=== PATIENT | male | born 1940 | race Caucasian/White ===

== ENCOUNTER 2016-07-07 19:41 | Inpatient (IN) | payer BC, MEDICARE ==
--- NOTE | ~2016-07-07 | DS ---
Discharge Summary [address] [place]. [address] NAME: SHRUTHI JAMIL : 40 STATUS : DIS IN PAT#: [id number] AGE: 76 ADM/REG DATE : 07/07/16 MR#: [id number] REPORT SERV DATE: 08/05/16 DICTATED BY: MACIEJ BOLIVAR DATE: 08/04/16 REPORT STATUS : Draft TRANSCRIBED BY: MODL DATE: 08/04/16 ADMISSION DATE: 07/07/2016 DISCHARGE DATE: 08/04/2016 The patient was admitted to the Hospitalist Service. CONSULTANTS: Dr. Luis Miguel Pittman, Orthopedics; Dr. Idania Mccarty, Gastroenterology; Dr. Dinora Aguilera, Pulmonology; and Hanna Santos, nurse practitioner for Nephrology. DISCHARGE DIAGNOSES: 1. Status post lumbar spine microdiskectomy. 2. Hypoxic respiratory failure postoperatively, resolved. 3. Status post mechanical aortic valve replacement on chronic oral anticoagulation with Coumadin. 4. Chronic atrial fibrillation. 5. Chronic kidney disease stage III. 6. Diabetes mellitus type 2. 7. Obstructive sleep apnea. 8. Anemia of chronic disease with postop acute blood loss anemia. 9. Urinary retention. PROCEDURES: 07/11/2016, right-sided L2-3 and L4-5 laminal foraminotomy with microdiskectomy per Dr. Luis Miguel Pittman. HISTORY OF PRESENT ILLNESS: For complete history, please refer to admission H and P by Dr. Nancy Gardner at [facility] on 07/07/2016. Briefly Mr. Jamil is a 76-year-old gentleman, who presented to the emergency room with complaints of low back pain, leg weakness, and difficulty ambulating. In the emergency room at the [facility], an MRI showed a ruptured disc at lumbar L2-3 and protruding discs at L3-4 and L4-5 as well as compression fracture at T12. In addition, he had an acute kidney injury with a creatinine of 2.73 and a supratherapeutic INR of 6.4. He was admitted to the Hospitalist Service and transferred to the [facility] for further evaluation and treatment. HOSPITAL COURSE: Please see interim discharge diagnoses by Bharat Fairchild, nurse practitioner, and Dr. Ira Pulido. This discharge summary will cover dates 08/02/2016 through 08/04/2016. I saw Mr. Jamil on 08/02/2016 this week. He admitted to being depressed about his current situation with lengthy hospitalization. He was complaining of some cough with inability to expectorate his sputum. He was also complaining that our suction equipment in the hospital was inadequate, therefore he had his bring in their own portable suction from home. His vital signs were stable. He was alert and oriented, in no acute distress. He did have somewhat of a productive cough intermittently. His lungs had a very few scattered rhonchi which cleared with cough. Cardiovascular, he had an irregularly irregular rhythm, rate in the 80s. Atrial fibrillation per bedside monitor. He was currently receiving a heparin drip as his INR was subtherapeutic and on this date was 2.1. Plan was Discharge Summary [address] [address] NAME: SHRUTHI JAMIL : 40 STATUS : DIS IN PAT#: [id number] AGE: 76 ADM/REG DATE : 07/07/16 MR#: [id number] REPORT SERV DATE: 08/05/16 DICTATED BY: MACIEJ BOLIVAR DATE: 08/04/16 REPORT STATUS : Draft TRANSCRIBED BY: JIMMY DATE: 08/04/16 for Mr. Jamil to transition to [facility] rehab once his INR was therapeutic. The goal was 2.5 to 3.5 as he has a mechanical aortic valve. He did have a Mclaughlin catheter and bladder training was in progress. His creatinine was at baseline and Renal signed off on this date. On 08/03/2016, he was in no acute distress. He felt better. He was asking about getting another Procrit dose; however, he had recently had a Procrit dose on 07/29/2016. His cough had improved. He had less sputum production and no new complaints. His oxygen was 100% on 2-1/2 L, therefore we decreased him to 2 L and then to 1 liter. He is using his CPAP nightly with 2 L of oxygen. His blood sugars have been under control with the current insulin regimen. After discussion with the [facility] Liaison on 08/03/2016, she was resubmitting Mr. Jamil' information to [facility] for approval since significant amount of time had elapsed since his initial approval for inpatient rehab. He continued on a heparin drip again on this date. On 08/04/2016, Mr. Jamil remained in stable condition. He denied any chest pain or shortness of breath, still had an occasional cough with intermittent clear sputum production. His oxygen saturation was 99 to 100% on 2 L. His lungs were clear. He did have some occasional scattered rhonchi that cleared with cough. His blood sugar this morning was 149. His last laboratory studies were on 08/03/2016 and are as follows. Sodium 138, potassium 4.0, chloride 99, BUN 45, creatinine 1.79, glucose 112, calcium 8.3, magnesium 1.9, and phosphorus 3.4. CBC on 08/03/2016 revealed a white count of 5.1, hemoglobin 9, hematocrit 27.5, and platelets 224,000. On 08/04/2016, his INR was 2.9, therefore his heparin drip was discontinued. He was given a dose of Coumadin 12 mg today prior to his discharge to [facility]. Mr. Jamil was anxious regarding his transfer to [facility]. Mainly his concern was they were not going to be able to manage his INR while he was over there. I reassured him that this is manageable and they will follow his INR on a daily basis until his INR stabilizes. He will continue to receive daily adjustments in his Coumadin dose as well. Therefore, on the afternoon of 08/04/2016, he was discharged in stable condition to [facility] for rehab. DISCHARGE INSTRUCTIONS: Include 1. Diet 1800 calorie ADA diet is recommended. 2. Activity as tolerated with PT and OT evaluating and treating. DISCHARGE MEDICATIONS: Which are as follows: 1. Calcitriol 0.25 mcg p.o. with supper daily. 2. Carvedilol 3.125 mg p.o. b.i.d. 3. Colace 100 mg p.o. b.i.d. 4. Doxycycline 100 mg p.o. b.i.d., discontinue after last dose on 08/06/2016. 5. Vitamin D 50,000 units p.o. weekly on . 6. Lasix 80 mg p.o. b.i.d. 7. Guaifenesin 600 mg p.o. b.i.d. p.r.n. 8. Sliding scale insulin level 1 q.a.c. 9. NovoLog insulin 5 units subcu t.i.d. with meals. 10.Synthroid 175 mcg p.o. daily. 11.Amitiza 24 mcg p.o. with breakfast and supper. 12.Coumadin sliding scale. Pharmacy to dose after daily INR. 13.Hydralazine 25 mg p.o. t.i.d., hold for systolic blood pressure less than 110. 14.Albuterol unit dose q.4 hours p.r.n. 15.Levemir 25 units subcu daily at bedtime. Discharge Summary [address] [address] NAME: SHRUTHI JAMIL : 40 STATUS : DIS IN PAT#: [id number] AGE: 76 ADM/REG DATE : 07/07/16 MR#: [id number] REPORT SERV DATE: 08/05/16 DICTATED BY: MACIEJ BOLIVAR DATE: 08/04/16 REPORT STATUS : Draft TRANSCRIBED BY: JMIMY DATE: 08/04/16 16.Tylenol with Codeine 300/30 mg one p.o. q.4 hours p.r.n. pain. 17.Tylenol 650 p.o. q.4 hours p.r.n. 18.Tylenol suppository 650 mg q.4 hours p.r.n. 19.Mylanta 30 mL p.o. p.r.n. 20.Dulcolax suppository 10 mg p.r. p.r.n. 21.Dulcolax tab 15 mg p.o. p.r.n. 22.Benadryl 12.5 mg p.o. q.6 hours p.r.n. 23.Glucagon 1 mg IM per hypoglycemia protocol. 24.Glucose tabs p.r.n. per hypoglycemia protocol. 25.Milk of magnesia 30 mL p.r.n. b.i.d. 26.Zofran 4 mg p.o. or sublingual q.4 hours p.r.n. nausea. 27.Oxycodone 5/325 one p.o. q. 4h. p.r.n. 28.Fleet Enema p.r.n. 29.Restoril 15 mg p.o. at bedtime p.r.n. 30.Folic acid 1 mg p.o. daily. 31.Aspirin 81 mg p.o. daily. 32.Cerefolin tablet 1 p.o. daily. 33.Crestor 20 mg p.o. daily at bedtime. Other discharge instructions include Mr. Jamil is asked to follow up with his PCP and storage specialist after discharge from [facility]. Again he is to receive daily INR for his Coumadin dosing with INR goal 2.5 to 3.5. Again he is discharged to [facility] in stable condition on 08/04/2016. TOSIN/JIMMY Zeny Bolivar TIRE BALANCER-BC / [id number] CC: Hermelinda Jean Baptiste M.D. Luis Miguel Pittman, DO Mago Mackenzie M.D. [facility]
--- NOTE | ~2016-07-07 | CN ---
Consultation Report [facility] [address] [place]. [address] NAME: SHRUTHI JAMIL : 40 STATUS : ADM IN [facility]#: [id number] AGE: 76 ADM/REG DATE : 07/07/16 MR#: [id number] REPORT SERV DATE: 07/12/16 DICTATED BY: DINORA AGUILERA DATE: 07/12/16 REPORT STATUS : Draft TRANSCRIBED BY: MODL DATE: 07/12/16 CRITICAL CARE CONSULT DATE OF CONSULTATION: REASON FOR CONSULTATION: Postop respiratory failure. CHIEF COMPLAINT: Unable to obtain as the patient is currently intubated and no family is at the bedside. HISTORY OF PRESENT ILLNESS: Mr. Jamil is a 76-year-old male who was admitted on 07/07/2016, five days ago with a ruptured disk and left extremity weakness along with urinary retention. He had a supratherapeutic INR at that time and is noted to have a mechanical valve history. The patient was also noted to be in acute kidney injury. He was admitted to [facility] and transferred to our institution. The patient underwent a right lumbar radiculopathy, right lower extremity weakness diagnosis, and the procedure was a right-sided L2 through L5 laminectomy, foraminotomy, and microdiskectomy. This was done yesterday. After surgery, the patient was kept intubated. He is currently off anticoagulation, he has been reversed, and the thought is to keep him intubated for around 24 hours. PAST MEDICAL HISTORY: Acute kidney injury, chronic kidney disease, diabetes, mechanical aortic valve, and chronic venous stasis. MEDICATIONS: Current medications include Amitiza, Ancef, verapamil, Colace, Coreg, folic acid, Lipitor, level 2 sliding scale, calcitriol, and Synthroid. ALLERGIES: NEOMYCIN, BACITRACIN, POLYMYXIN B. SOCIAL HISTORY: According to record, no alcohol or tobacco use. 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 FAMILY HISTORY: Consistent with diabetes. REVIEW OF SYSTEMS: Unable to obtain due to the patient's current medical status. PHYSICAL EXAMINATION: VITAL SIGNS: Afebrile; heart rate in the 50s and 70s, currently on mechanical ventilation; oxygen saturation 100%; and blood pressure currently in the 120s. GENERAL: The patient is sedated, reactive pupils. HEENT: No JVD. NECK: Supple. PULMONARY: Lungs are clear to auscultation bilaterally. No wheezing. CARDIAC: Mechanical heart sound, regular rate. Consultation Report [address] [address] NAME: SHRUTHI JAMIL : 40 STATUS : ADM IN [facility]#: [id number] AGE: 76 ADM/REG DATE : 07/07/16 MR#: [id number] REPORT SERV DATE: 07/12/16 DICTATED BY: DINORA AGUILERA DATE: 07/12/16 REPORT STATUS : Draft TRANSCRIBED BY: MODValery DATE: 07/12/16 ABDOMEN: Soft, nontender, and nondistended. EXTREMITIES: Chronic venous stasis, peripheral pulses noted. LABORATORY EXAMINATION: No leukocytosis, hemoglobin stable, platelet count 88, findings of chronic kidney disease. Upon review of the patient's platelet count, the patient's last platelet count was in 2000 and it was 255, and therefore, no baseline. Imaging: Postop chest x-ray shows ET tube is in good position, possible left lower lobe atelectasis, but otherwise, no acute findings, findings of previous open heart surgery. ASSESSMENT AND PLAN: Mr. Jamil is a 76-year-old male with a past medical history noted above who is currently postop respiratory failure. 1. Postoperative respiratory failure: At this moment in time, we will await Surgery clearance to extubate the patient. Therefore, the patient is potentially a quick wean within 24 hours. 2. Mechanical aortic valve: The patient is currently not on any anticoagulation, we will wait the directive of Orthopedic Surgery prior to initiating anticoagulation. 3. At this moment in time, we will keep the patient n.p.o. Thank you very much for this consultation and allowing us to participate in your patient's care, please call us with any further questions or concerns. HFQ/MODL Dinora Aguilera MD / [id number] CC: MD Domenico Rick M.D.
--- NOTE | ~2016-07-07 | CN ---
Consultation Report [facility] [address] [place]. [address] NAME: BUNNY JAMIL : 40 STATUS : ADM IN [facility]#: [id number] AGE: 76 ADM/REG DATE : 07/07/16 MR#: [id number] REPORT SERV DATE: 07/09/16 DICTATED BY: CHRISTIE ARRIAGA DATE: 07/09/16 REPORT STATUS : Draft TRANSCRIBED BY: MODL DATE: 07/09/16 CONSULTATION DATE OF CONSULTATION: HISTORY OF PRESENT ILLNESS: Bunny Jamil is a pleasant 76-year-old gentleman, who has a history of spinal stenosis, who was admitted here on 07/07/2016 with weakness on the left leg and was found to have a spinal stenosis of L2-L3 and L4-L5. He was supposed to have a spinal surgery done on Monday and has a history of INR being 6.2 and having heme-positive stools, hence the consult. According to the patient, the patient has been having clots from the nose and has multiple areas of ecchymosis on the legs and hands and he is pretty aware that his INR 6.3 that is probably the reason why he is having blood in his stools. He wants to proceed to surgery and does not want a colonoscopy at this time. He had a colonoscopy done about four years ago by Dr. Colón and did not have any polyps. PAST MEDICAL HISTORY: Significant for kidney injury, volume depletion, type 2 diabetes mellitus, aortic valve replacement, on permanent anticoagulants with Coumadin, gallbladder disturbance. He has some gait abnormalities for which he uses a walker, has chronic venous stasis, and has spinal canal stenosis. ALLERGIES: NEOSPORIN AND VERSED FAMILY HISTORY: Noncontributory at this time. REVIEW OF SYSTEMS: Shows that the patient has weakness in the left leg and has pain in his back. Has no shortness of breath. Has multiple areas of ecchymosis. Otherwise, he seems to be normal. PHYSICAL EXAMINATION: VITAL SIGNS: His temperature is normal. NECK: Supple. Trachea is central. Carotids are well felt on both sides. CARDIOVASCULAR SYSTEM: S1 and S2 are heard. There is no S3. ABDOMEN: Soft. Bowel sounds are heard. CHEST: Scars over his chest and abdomen. CENTRAL NERVOUS SYSTEM: Higher function, cranial nerves, and reflexes are normal except for the weakness on the left. CURRENT MEDICATIONS: Lipitor 40 mg per day, Rocaltrol 0.25 mcg p.o. weekly, Coreg (carvedilol) 3.125 mg b.i.d., NovoLog injection, Synthroid, Amitiza, Levemir, and heparin drip. LABORATORY DATA: His lab show a white cell count of 7.6, hemoglobin is 10.3, hematocrit Consultation Report [address] [address] NAME: BUNNY JAMIL : 40 STATUS : ADM IN PAT#: [id number] AGE: 76 ADM/REG DATE : 07/07/16 MR#: [id number] REPORT SERV DATE: 07/09/16 DICTATED BY: CHRISTIE ARRIAGA DATE: 07/09/16 REPORT STATUS : Draft TRANSCRIBED BY: JIMMY DATE: 07/09/16 30.7, platelet count is 77. INR was 1.8. His sodium is 132, potassium is 4.3, chloride is 99, BUN is 64, creatinine is 2.3, glucose is 218, and calcium is 7.7. IMPRESSION: 1. Diabetes mellitus. 2. Osteoarthritis of spine. 3. Ruptured disk with leg weakness. 4. Urinary retention. 5. Aortic valve replacement, on Coumadin, with an INR of 6.4. 6. History of congestive heart failure. 7. Acute kidney injury. 8. He has consistent thrombocytopenia. 9. Anemia with heme-positive stools. PLAN: At this point, I would continue the heparin drip, but would suggest the heparin to keep the INR about 2.5, would proceed with surgery, but according to the patient, he does not want any colonoscopy at this time, so we will follow his hemoglobin. Thank you for the consult. GLENN/JIMMY Christie Arriaga M.D. / [id number] CC: Hermelinda Jeffrey M.D.
--- NOTE | ~2016-07-07 | IDS ---
Interim Discharge Summary [facility] [address] [place]. [address] NAME: SHRUTHI BROOKS : 40 STATUS : ADM IN [facility]#: [id number] AGE: 76 ADM/REG DATE : 07/07/16 MR#: [id number] REPORT SERV DATE: 07/12/16 DICTATED BY: LATRELL THOMPSON DATE: 07/11/16 REPORT STATUS : Draft TRANSCRIBED BY: MODL DATE: 07/11/16 ADMISSION DATE: 07/07/2016 DISCHARGE DATE: REASON FOR ADMISSION: This is a 76-year-old male who had come into the emergency department at [facility] for back pain and left leg weakness. MRI of lumbar spine would show findings suggestive of a late subacute insufficiency fracture T12, disk extrusion at L2-L3 with canal stenosis. An effective AP canal diameter of 4 mm disk protrusions also at L3-L4 and L4-L5 and markedly distended urinary bladder. Due to patient's symptoms imaging findings, he was admitted for lumbar spine stenosis with lower extremity weakness and urinary retention. INTERIM DISCHARGE DIAGNOSES: 1. Ruptured disk with leg weakness and urinary retention. 2. History of mechanical aortic valve replacement. 3. Acute blood loss anemia with Hemoccult-positive stool. 4. Acute kidney injury. 5. Obstructive sleep apnea. 6. Diabetes type 2. 7. Morbid obesity. 8. Relative bradycardia secondary to beta-vesna. HOSPITAL COURSE: 1. Ruptured disk with leg weakness and urinary retention. The patient agreed to transfer to [facility] for surgery to be performed by Dr. Pittman who agreed to consult on the patient. However, the patient has a history of aortic valve replacement on Coumadin, had come in with INR of 6.4, and so we had to transition the patient to get his INR down to acceptable levels and transition him over to heparin drip, as well as the patient had acute kidney injury and so we have been rehydrating the patient preparing him for surgery, and the patient is scheduled to be having surgery today by Dr. Pittman. 2. History of mechanical aortic valve. As previously mentioned the patient had INR of 6.4 on admission, is trended down now after vitamin K was given to now and INR of 1.6, and he is on an IV heparin drip which has been stopped here just recently as the patient is having surgery shortly. 3. Acute blood loss anemia. The patient does have a history of chronic anemia and receives Procrit shots; however, the patient's hemoglobin had dropped from 13.0 on admission down to 11.6, then 10.3, and now 9.2. Stools were hemocculted and were positive so we consulted GI, Dr. Mccarty saw the patient. The patient refused to do colonoscopy or GI scope and his hemoglobin is relatively stable having been between 10 and 9. Apparently, he receives Procrit shots every 3 weeks. 4. Acute kidney injury. The patient was hypovolemic dehydrated on admission with a creatinine of 2.73. We have been giving him gentle IV fluid hydration and he is trended down now to 1.60 today. 5. Obstructive sleep apnea. The patient uses CPAP at bedtime, has at bedside. 6. Diabetes type 2. The patient has had some hypoglycemia here at the hospital, was Interim Discharge Summary [address] [address] NAME: SHRUTHI BROOKS : 40 STATUS : ADM IN [facility]#: [id number] AGE: 76 ADM/REG DATE : 07/07/16 MR#: [id number] REPORT SERV DATE: 07/12/16 DICTATED BY: LATRELL THOMPSON DATE: 07/11/16 REPORT STATUS : Draft TRANSCRIBED BY: JIMMY DATE: 07/11/16 n.p.o. after midnight. I did reduce his Levemir dose by 50% but he was still 51 this morning, so we will hold Levemir until the patient is consistently eating. 7. Relative bradycardia secondary to beta vesna. The patient's heart rate has been in the 50s over last 24 hours, so we have set parameters to hold Coreg if heart rate less than 60. CURRENT MEDICATIONS: 1. Atorvastatin 40 mg p.o. at bedtime. 2. Calcitriol 0.25 mcg p.o. daily. 3. Carvedilol 3.125 mg p.o. b.i.d. 4. Ergocalciferol 50,000 units p.o. every . 5. Folic acid 1 mg p.o. daily. 6. Sliding scale NovoLog. 7. Synthroid 175 mcg p.o. daily. 8. Lubiprostone 24 mcg p.o. daily. 9. Verapamil 360 mg p.o. daily. CURRENT PLAN: The patient going for surgery today with Dr. Pittman. Course postoperatively was put patient back on heparin drip and transition him back to Coumadin. The patient's care to be assumed this week by Ira Pulido. JESSICA/NICHOLEL Latrell Thompson APN / [id number] CC: MD Domenico Rick M.D. Jason C. Eck, DO Jay Philippose, M.D.
--- NOTE | ~2016-07-07 | CN ---
Consultation Report [facility] [address] [place]. [address] NAME: SHRUTHI BROOKS : 40 STATUS : ADM [facility] [id number] AGE: 76 ADM/REG DATE : 07/07/16 MR#: [id number] REPORT SERV DATE: 07/09/16 DICTATED BY: LUIS MIGUEL PITTMAN DATE: 07/09/16 REPORT STATUS : Draft TRANSCRIBED BY: MODL DATE: 07/09/16 INPATIENT CONSULTATION DATE OF CONSULTATION: 07/08/2016 CHIEF COMPLAINT: Right leg weakness. HISTORY OF PRESENT ILLNESS: The patient is a 76-year-old who was admitted to the medical service on 07/07/2016 with progressive right leg weakness. He states that for about 4 weeks he had been having increasing difficulty. His primary doctor had initially recommended an MRI and he had declined. Over that 4-week period, he started having progressive difficulty with ambulating and pain and weakness in the right leg and eventually went to the emergency department at [facility], had an MRI scan that showed rather severe stenosis at L2-L3 as well as on the right-side at L4-L5. He had multiple medical issues and was transferred to the [facility], admitted to the Hospitalist Service, and I was consulted. He also had distended bladder and a Mclaughlin was placed in the emergency department. On questioning, the patient states that he was able to urinate that he never felt that he had inability to void. He does understand the concept of cauda equina syndrome and he states that he did not feel that he had any urinary retention. PAST MEDICAL HISTORY: Include acute kidney injury, volume depletion, type 2 diabetes, aortic valve replacement, gait disturbance using a walker, chronic venous stasis. ALLERGIES: NEOSPORIN AND VERSED. FAMILY HISTORY: Noncontributory. REVIEW OF SYSTEMS: He denies any chest pain or shortness of breath. He denies urinary retention although he did have a distended bladder and a Mclaughlin catheter was placed. PHYSICAL EXAMINATION: The patient does have rather significant decreased strength in the right lower extremity diffusely. He has 3/5 for the hip flexors, quadriceps, and hamstrings. 2+/5 for the tibialis anterior and peroneals and 4/5 for the gastroc soleus on the right side. Left lower extremity remains intact. No focal deficits. Sensation is somewhat diminished to light touch bilaterally but that is chronic for him secondary to his diabetes. LAB STUDIES: The patient is coagulopathic. His INR is 6.4. He states that he his normal range is approximately 3.0. His BUN and creatinine are 76 and 2.73. He states that it is usually less than 2. IMAGING: I did review the MRI scan. He does have multilevel degenerative disk disease and stenosis, most severely at the L2-L3 level. He also has compression fracture at T12 that is Consultation Report [place] [address] [facility] [id number] NAME: SHRUTHI BROOKS : 40 STATUS : ADM IN PAT#: [id number] AGE: 76 ADM/REG DATE : 07/07/16 MR#: [id number] REPORT SERV DATE: 07/09/16 DICTATED BY: LUIS MIGUEL PITTMAN DATE: 07/09/16 REPORT STATUS : Draft TRANSCRIBED BY: MODValery DATE: 07/09/16 minimally symptomatic. ASSESSMENT: 1. Lumbar disk disease and stenosis with associated right lower extremity weakness. 2. Coagulopathy and kidney disease. PLAN: I had a long discussion with the patient and discussed in detail the fact that he does have significant compression of the nerve and that certainly is the likely cause of his weakness in the right lower extremity, could be causing some of the urinary retention although he does not feel that he has urinary retention but I did explain that was a possibility. He does understand that without surgery those nerves will continue to be compressed and potentially further damage, potentially even permanently causing permanent weakness in the right leg or bladder control issues and he understands these. He also understands that unfortunately he does have several serious lab abnormalities related to his INR being extremely elevated and his kidney function being very poor at this time. As a result, to minimize his overall medical risk of surgery, we will give the hospitalist the time needed to help normalize those labs as much as possible to minimize the overall medical risk of surgery. Again, the patient does realize that this delay could lead to permanent nerve damage. He understands that but would much rather wait until it is safe to do from a medical standpoint given the overall risk. I will follow along and once he is medically stable per the hospitalist, we will plan to proceed with surgery. ANNMARIE/JIMMY Luis Miguel Pittman DO / [id number]
--- NOTE | ~2016-07-07 | IDS ---
Interim Discharge Summary [facility] [address] [place]. [address] NAME: SHRUTHI BROOKS : 40 STATUS : ADM IN LOCATED [facility]IN [facility]#: [id number] AGE: 76 ADM/REG DATE : 07/07/16 MR#: [id number] REPORT SERV DATE: 07/18/16 DICTATED BY: CHRIS ÁLVAREZ DATE: 07/18/16 REPORT STATUS : Draft TRANSCRIBED BY: MODL DATE: 07/18/16 ADMISSION DATE: 07/07/2016 DISCHARGE DATE: INTERIM DISCHARGE SUMMARY [employer]: Yan Mcgraw M.D. Date of service provided 07/14/2016 to 07/18/2016. The patient was initially in the intensive care unit starting 07/11/2016 to 07/14/2016 under the care of Dr. Bartholomew and prior in the beginning of this hospitalization, he was under the care of Dr. Kendall and his nurse practitioner, Bharat Fairchild. Please see interim discharge summary dictated by Bharat Fairchild on 07/11/2016. CURRENT MEDICAL PROBLEMS: 1. Status post lower back surgery on 07/11/2016 for ruptured disc and leg weakness. 2. Status post extubation on day #3 after surgery. 3. Status post transfer from the ICU to the floor 07/14/2016. 4. Postoperative respiratory failure with pulmonary edema, currently on IV Bumex per Nephrology, improving. 5. Chronic kidney disease with a creatinine being at the baseline. 6. Mechanical aortic valve, on heparin drip and Coumadin anticoagulation. His current INR is 1.8. Goal for anticoagulation INR to be from 2.5 to 3.5. 7. Postsurgical anemia of acute blood loss, stable hemoglobin and hematocrit, status post Procrit transfusion by safe and vault installer. 8. Heme-positive stool without any gross bleeding. The patient did not want to have upper endoscopy. He was seen by Dr. Mccarty in the beginning of this admission. 9. History of supratherapeutic INR on admission, currently INR 1.8. 10.Thrombocytopenia, improved. 11.Relative bradycardia secondary to beta-blockers. Beta-vesna dose was reduced by Bharat Fairchild. 12.Morbid obesity. 13.Obstructive sleep apnea. 14.Diabetes, type 2, controlled. CONSULTANTS DURING THIS WEEK: 1. Dr. Pittman of [facility] for the back surgery, still following. 2. Dr. Kincaid of Nephrology for IV diuretics. 3. Coal Hiker was consulted as well. HOSPITAL COURSE: Briefly for this week, I saw this patient on 07/14/2016 when he was transferred from ICU to the floor. He spent 2 days in the ICU and he was extubated and transferred to the floor. He had shortness of breath and he was in pulmonary edema. Dr. Kincaid was consulted and he is managing him on IV Bumex. His creatinine was 1.65 and his baseline creatinine was from 1.6 to 1.8. Nephrology is following creatinine. Interim Discharge Summary [place] [address] [place]. [address] NAME: SHRUTHI BROOKS : 40 STATUS : ADM IN PAT#: [id number] AGE: 76 ADM/REG DATE : 07/07/16 MR#: [id number] REPORT SERV DATE: 07/18/16 DICTATED BY: CHRIS ÁLVAREZ DATE: 07/18/16 REPORT STATUS : Draft TRANSCRIBED BY: JIMMY DATE: 07/18/16 Regarding his anemia, hemoglobin is stable and needs to be monitored. It is 8.1 yesterday and 7.6 today, monitor and Procrit was given. If hemoglobin will drop, he may need a blood transfusion. He also had mild hemoptysis, but no severe hemoptysis, so dean of graduate studies recommended to continue heparin drip and Coumadin. PLAN FOR THIS PATIENT: His INR should be 2.5 for heparin drip to be discontinued and the goal INR 2.5 to 3.5 and plan for inpatient rehab when he will feel better. He is still on 4 L of oxygen via nasal cannula. MEDICATIONS: He was currently given albumin 25 g IV with Bumex. He is on Lipitor 40 mg daily, Coreg 3.125 p.o. b.i.d., he is on folic acid 1 mg daily. He is on Synthroid 175 mcg daily as well as verapamil SR 360 mg p.o. daily, calcitriol 0.25 mcg p.o. daily, heparin drip as well. My partner will see this patient starting tomorrow morning. MG/MODL Chris Álvarez M.D. / [id number] CC: Hermelinda Burger M.D. Brant Holt, M.D.
--- NOTE | ~2016-07-07 | CN ---
Consultation Report [facility] [address] [place]. [address] NAME: SHRUTHI JAMIL : 40 STATUS : ADM IN [facility]#: [id number] AGE: 76 ADM/REG DATE : 07/07/16 MR#: [id number] REPORT SERV DATE: 07/17/16 DICTATED BY: DATE: REPORT STATUS : Draft TRANSCRIBED BY: MODL DATE: 07/17/16 CONSULTATION DATE OF CONSULTATION: REASON FOR CONSULTATION: Anemia and CKD. HISTORY OF PRESENT ILLNESS: Mr. Jamil is a 76-year-old white male with a history of CKD stage 3, followed in the office by Dr. Mcgraw with baseline creatinine of 1.8 to 2.1. He is in the hospital at this time after having lumbar surgery, had L-spine microdiscectomy, he is postop day 5. He has been in the hospital in regard to kidney function, his creatinine today is 1.4 which is well below baseline and looks as though his creatinine was as high as 2.7 on admission, slowly drifted down to this, he has gotten IV fluids during his hospital stay. His chest x-ray has pulmonary edema and a pretty large right pleural effusion. We were asked to see him in regard to his anemia of chronic kidney disease, requesting Procrit. His hemoglobin has gone from 13 on admission down to 8.1 today. He describes dizziness upon standing and significant weakness to the point he is unable to get around. He denies any dark or blood in stools. He does have one heme-positive stool in the [facility] record from the 4th. PAST MEDICAL HISTORY: CKD, diabetes, obstructive sleep apnea wears CPAP, mechanical aortic valve, atrial fibrillation, type 2 diabetes. ALLERGIES: NEOMYCIN, BACTRIM, AND POLYMYXIN. SOCIAL HISTORY: He is a retired pressor. No tobacco, alcohol or illicit drug use. MEDICATIONS: At the time of consultation; Lipitor, Rocaltrol, Coreg, Colace, vitamin D, folic acid, NovoLog, Synthroid, Amitiza, Calan, and Coumadin as well as a heparin drip. REVIEW OF SYSTEMS: A 12-point review of systems was obtained and negative with the exception of that in HPI. PHYSICAL EXAMINATION: VITAL SIGNS: Temp 98.3, blood pressure 128/74, pulse 52, respiratory rate 20, O2 saturation is 99% on 3 L. GENERAL: This is a pleasant, cooperative, white male, ill-appearing. HEENT: Normocephalic, atraumatic. Conjunctivae clear. Sclerae anicteric. Oral mucosa is moist. NECK: Neck is thick. I did not assess neck veins. LUNGS: Respirations are even. They are slightly labored with just exertion of talking and decreased. HEART: Rate is regular. He does have a systolic murmur. No rub or gallop. ABDOMEN: His abdomen is obese, soft, nontender. Bowel sounds active. No masses or Consultation Report [address] [place]. [address] NAME: SHRUTHI JAMIL : 40 STATUS : ADM IN [facility]#: [id number] AGE: 76 ADM/REG DATE : 07/07/16 MR#: [id number] REPORT SERV DATE: 07/17/16 DICTATED BY: DATE: REPORT STATUS : Draft TRANSCRIBED BY: MODL DATE: 07/17/16 hepatosplenomegaly. BACK: Unable to examine back. EXTREMITIES: With 1+ pitting edema bilaterally. SKIN: His skin is pale, warm, dry, and intact. No unusual rashes or skin lesions. NEURO EXAM: Generalized weakness. No focal deficits. Mood and affect, pleasant appropriate. PERTINENT LABS AND X-RAYS: Chest x-ray as described above with right pleural effusion and edema. WBC 4.6, H and H 8 and 24, platelets 126,000. Sodium 136, potassium 4.6, chloride 100, CO2 of 29, BUN of 30, creatinine of 1.4. Calcium of 8.1, magnesium of 2.2. IMPRESSION: 1. Anemia of chronic kidney disease. 2. Chronic kidney disease stage 3, baseline of 1.8 to 2.1. 3. Status post lumbar spine microdiskectomy postop day 5. 4. Pulmonary edema. 5. Mechanical aortic valve replacement. PLAN/RECOMMENDATIONS: 1. CKD well below baseline. I suspect this is due to dilution as he has significant fluid and on chest x-ray is positive for edema and a pleural effusion. We will diurese him with some IV Bumex. We will go ahead and give him a dose of Procrit, check iron studies. Follow labs, I's and O's, and we will follow along with you. I would hold LUCA inhibitor for now. Further orders and recommendations pending clinical course. JOAQUIN/JIMMY LAVELL Restrepo / [id number] CC: Ira Pulido M.D.
--- NOTE | ~2016-07-07 | OP ---
Record Of Operation [facility] [address] [place]. [address] NAME: SHRUTHI BROOKS : 40 STATUS : ADM IN PAT#: [id number] AGE: 76 ADM/REG DATE : 07/07/16 MR#: [id number] REPORT SERV DATE: 07/12/16 DICTATED BY: LUIS MIGUEL PITTMAN DATE: 07/11/16 REPORT STATUS : Draft TRANSCRIBED BY: MODL DATE: 07/11/16 DATE OF PROCEDURE: 07/11/2016 PREOPERATIVE DIAGNOSES: Right lumbar radiculopathy, right lower extremity weakness, right side L2-3 and L4-L5 stenosis, possible neurogenic bladder. POSTOPERATIVE DIAGNOSES: Right lumbar radiculopathy, right lower extremity weakness, right side L2-3 and L4-L5 stenosis, possible neurogenic bladder. PROCEDURE: Right-sided L2-3 and L4-5 laminal foraminotomy with microdiskectomy use of operative microscope, intraoperative O-arm CT scan with computer navigation and minimal access spine technology, SURGEON: Luis Miguel Pittman DO. ANESTHESIA: General. ESTIMATED BLOOD LOSS: 15 mL. COMPLICATIONS: None. INDICATIONS: The patient is a 76-year-old with intractable right leg pain, progressive weakness, possible neurogenic bladder as detailed in my consult. After discussion of risks and benefits in detail with both myself and the Anesthesia team, we elected to proceed with surgery. There were multiple date delay for surgery due to the patient's severe medical comorbidities that had to be addressed prior to considering surgery. PROCEDURE IN DETAIL: I identified the patient in the holding area. Consent was obtained. Went to the operating room, underwent general anesthesia with endotracheal intubation. Prepped and draped in usual sterile fashion. Operative safety pause was performed, and then we proceeded with surgery. O-arm registration frame was placed in the iliac crest. O-arm was brought in for intraoperative CT scan. Computer registration materials were verified. Under computer guidance, a right longitudinal incision was made over the right L2-5 levels taken to the fascial layer. Tube dilators were used to minimally invasively dissect down to the right L2-3 interspace. Operative microscope was brought in. A esequiel was used to perform a laminotomy. Emmett performed a foraminotomy. Knife was used to incise the disk, and free disk material removed with pituitary. There was severe facet arthrosis that was removed as well as ligamentum hypertrophy causing severe central stenosis that was removed and cleared all the way to the contralateral side. This was repeated at the L4-L5 level. Each of the L2, 3, 4, and 5 nerves were free of compression at the end the case. Central canal was clear. Irrigation performed. Hemostasis achieved. 40 mg Depo-Medrol injected. Layered closure performed. Sterile dressings applied. The patient awoke and extubated taken to the recovery room in stable condition. OPERATIVE FINDINGS: Severe stenosis and nerve compression, L2-3 and L4-5. Record Of Operation [facility] [address] [facility] [address] [place]. [address] NAME: SHRUTHI BROOKS : 40 STATUS : ADM IN [facility]#: [id number] AGE: 76 ADM/REG DATE : 07/07/16 MR#: [id number] REPORT SERV DATE: 07/12/16 DICTATED BY: LUIS MIGUEL PITTMAN DATE: 07/11/16 REPORT STATUS : Draft TRANSCRIBED BY: JIMMY DATE: 07/11/16 ANNMARIE/JIMMY Luis Miguel Pittman DO / [id number] CC: MD Domenico Rick M.D.
--- NOTE | ~2016-07-07 | IDS ---
Interim Discharge Summary [facility] [address] [place]. [address] NAME: SHRUTHI BROOKS : 40 STATUS : ADM IN [facility]#: [id number] AGE: 76 ADM/REG DATE : 07/07/16 MR#: [id number] REPORT SERV DATE: 08/01/16 DICTATED BY: CHRIS ÁLVAREZ DATE: 08/01/16 REPORT STATUS : Draft TRANSCRIBED BY: MODL DATE: 08/01/16 ADMISSION DATE: 07/07/2016 DISCHARGE DATE: Interim discharge summary for a period of 07/26/2016 to 08/01/2016. Please also refer to the previous discharge summary dictated by me on 07/18/2016. Please also refer to the notes of Dr. Kendall and Dr. Urbina for a week 07/18/2016 to 07/26/2016 when the patient was seen by Dr. Urbina and Dr. Kendall. PATIENT'S CURRENT MEDICAL PROBLEMS: 1. Status post lower back surgery on 07/11/2016 for ruptured disk and leg weakness per Dr. Pittman. 2. Status post respiratory failure, resolved after surgery. 3. Chronic kidney disease with a creatinine being at the baseline 1.7 to 1.8, on Lasix 80 mg twice a day. 4. History of mechanical aortic valve. Currently, on heparin drip and Coumadin for anticoagulation, anticoagulation done per pharmacy. His INR goal is from 2.5 to 3.5. 5. Anemia of chronic disease, status post Procrit infusion, stable hemoglobin and hematocrit, 9.3 hemoglobin today. 6. History of heme-positive stool on admission without any gross bleeding. The patient refused endoscopy. 7. Cough with clear sputum production with clear chest x-ray and normal nila on sputum, started on doxycycline to continue for five more days. 8. Diabetes mellitus, controlled. 9. Echocardiogram done on 07/30/2016 showed technically difficult study with ejection fraction 55%, mild LVH, moderate mitral annular calcification with possible moderate mitral stenosis. CONSULTANTS ON THE CASE: [employer], Dr. Kincaid, nurse practitioner Hanna, they kind of signed off today. HOSPITAL COURSE: Briefly, for this week that I saw the patient. The patient had subtherapeutic INR on the beginning of the week and this was the main reason. The patient stayed in the hospital because of his INR being subtherapeutic and he needs to be on heparin drip because of his mechanical aortic valve. His INR became therapeutic transiently on 07/28/2016 was 2.8 and on 07/29/2016 was 2.8, but the patient wanted to be sure his INR is stable. So on 07/30/2016, INR started to come down and yesterday on 07/31/2016 was 1.8 and today 1.8. The patient received 12.5 mg of Coumadin yesterday as well as 12.5 mg of Coumadin today. Pharmacy was watching his INR and anticoagulation was done per pharmacy and he is again on heparin drip. The heparin drip needs to be discontinued when INR will be 2.5 or above. Also, he had episodes of shortness of breath. [employer] was evaluating him and they recommended dose of Lasix 80 mg twice a day. His creatinine stayed stable is 1.8, but the patient needs to restrict his fluid intake as well, not to go into congestive heart failure. Interim Discharge Summary [address] [address] NAME: SHRUTHI BROOKS : 40 STATUS : ADM IN [facility]#: [id number] AGE: 76 ADM/REG DATE : 07/07/16 MR#: [id number] REPORT SERV DATE: 08/01/16 DICTATED BY: CHRIS ÁLVAREZ DATE: 08/01/16 REPORT STATUS : Draft TRANSCRIBED BY: JIMMY DATE: 08/01/16 He was also complaining of cough and he requested to check his sputum, so the sputum culture was negative and he is a febrile. I started him on doxycycline. He needs to continue five more days of doxycycline. His blood sugar looks controlled. Regarding his anemia, his hemoglobin 9.3. The patient received Procrit infusion week before last and this week per home weatherizing worker. He is currently on Lipitor 40 mg a day, Rocaltrol 0.25 daily, Coreg 3.125 b.i.d., Colace 100 p.o. b.i.d., doxycycline 100 mg p.o. b.i.d., vitamin D 50,000 units p.o. weekly, hydralazine 25 p.o. t.i.d., NovoLog level 1 sliding scale with also NovoLog 5 units before meals and the Levemir 25 units daily, Synthroid 175 mcg a day, Amitiza mcg daily, and Coumadin sliding scale per pharmacy as well as heparin infusion. He is very stable on this medication regimen. I personally discussed with home weatherizing worker and Hanna told me that when the patient will be discharged to [facility], he needs to be on Lasix 80 mg twice a day. They did not recommend any other diuretics. For his diabetes, the regimen of Levemir and NovoLog is also good. He does not need to start any glipizide. My partner Zeny Qi will see this patient starting tomorrow morning. MG/MODL Chris Álvarez M.D. / [id number] CC: Hermelinda Burger M.D.
[~2016-07-07 19:41] MED LIST: ACCU5 PO; AMITIZA24 PO; BYETTA10 SC; C5 PO; CEREFOLI1 PO; COREG3 PO; CRESTOR20 MG PO; FOLIC PO; GLUCOTRO10 PO; HALF81 PO; ISOPTIN SR180 MG PO; KLOR-CON M2020 MEQ PO; L40 PO; LEVEMFLXPN SC; NOVOLOG SC; ROCALTROL0.25 MCG PO; SYNTHROID175 MCG PO; VITD PO; ZAROX2.5B PO
[2016-07-08 01:43] LABS: ASCORBIC ACID (UR NOT ORDER) NEG (NEG); BILIRUBIN, URINE NEGATIVE (NEG); KETONE, URINE NEGATIVE (NEG); LEUKOCYTE ESTERASE(NOT OR NEG (NEG); WBC (NOT ORDERED) (RFLEX) 8 (0-5)
[2016-07-08 06:08] LABS: BASOPHILS 0 %; EOSINOPHILS 0.4 %; EOSINOPHILS ABSOLUTE 0.03 10/3/uL (0.0-0.53); HEMOGLOBIN 11.6 g/dL (13.6-17.8); IMMATURE GRANULOCYTES 0.2 %; IMMATURE GRANULOCYTES ABSOLUTE 0.02 10/3/uL (0.0-0.11); LYMPHOCYTES 10.4 %; LYMPHOCYTES ABSOLUTE 0.86 10/3/uL (0.67-4.30); MEAN CORPUS HGB CONC 34.5 g/dL (32.0-36.0); MEAN CORPUSCULAR HEMOGLOB 28.9 pg (26.0-34.0); MEAN CORPUSCULAR VOLUME 83.6 fL (80-100); MEAN PLATELET VOLUME 9.3 fL (9.2-13.0); MONOCYTES 4.7 %; MONOCYTES ABSOLUTE 0.39 10/3/uL (0.21-1.20); NEUTROPHILS 84.3 %; NEUTROPHILS ABSOLUTE 6.97 10/3/uL (2.02-8.40); PLATELET COUNT 85 10/3/uL (150-400); RBC DISTRIBUTION WIDTH 16.1 % (12.0-16.0); RED CELL COUNT 4.02 10/6/uL (4.7-6.1); WHITE BLOOD CELLS 8.3 10/3/uL (4.5-10.5)
[2016-07-08 06:10] LABS: HEMATOCRIT 33.6 % (40.0-51.0); MANUAL DIFF NO %
[2016-07-08 06:20] LABS: CALCIUM, SERUM 8.1 MG/DL (8.5-10.4); CHLORIDE, SERUM 97 MMOL/L (96-112); CO2 (CARBON DIOXIDE) 25 MMOL/L (24-34); CREATININE 2.35 MG/DL (0.70-1.30); GFR AFRICAN AMERICAN 30 ML/MIN (>=60); GFR NON AFRICAN AMERICAN 26 ML/MIN (>=60); POTASSIUM, SERUM 3.7 MMOL/L (3.5-5.3); SODIUM, SERUM 133 MMOL/L (135-148)
[2016-07-08 06:21] LABS: BUN (BLOOD UREA NITROGEN) 68 MG/DL (6-23); GLUCOSE, SERUM 141 MG/DL (60-99); TROPONIN I 0.11 NG/ML (<0.05)
[2016-07-08 08:40] LABS: PROTIME (NOT ORD) 22.4 SEC (12.0-14.5)
[2016-07-09 01:41] LABS: BASOPHILS 0 %; EOSINOPHILS 0.8 %; EOSINOPHILS ABSOLUTE 0.06 10/3/uL (0.0-0.53); HEMATOCRIT 30.7 % (40.0-51.0); HEMOGLOBIN 10.3 g/dL (13.6-17.8); IMMATURE GRANULOCYTES 0.3 %; IMMATURE GRANULOCYTES ABSOLUTE 0.02 10/3/uL (0.0-0.11); LYMPHOCYTES ABSOLUTE 0.53 10/3/uL (0.67-4.30); MANUAL DIFF NO %; MEAN CORPUS HGB CONC 33.6 g/dL (32.0-36.0); MEAN CORPUSCULAR HEMOGLOB 28.5 pg (26.0-34.0); MEAN CORPUSCULAR VOLUME 84.8 fL (80-100); MEAN PLATELET VOLUME 10.1 fL (9.2-13.0); MONOCYTES 4.1 %; MONOCYTES ABSOLUTE 0.31 10/3/uL (0.21-1.20); NEUTROPHILS 87.8 %; NEUTROPHILS ABSOLUTE 6.65 10/3/uL (2.02-8.40); PLATELET COUNT 77 10/3/uL (150-400); RBC DISTRIBUTION WIDTH 16.2 % (12.0-16.0); RED CELL COUNT 3.62 10/6/uL (4.7-6.1); WHITE BLOOD CELLS 7.6 10/3/uL (4.5-10.5)
[2016-07-09 01:50] LABS: INTERNATIONAL NORMAL RATI 1.8 UNITS (-); PROTIME (NOT ORD) 20.7 SEC (12.0-14.5)
[2016-07-09 01:51] LABS: PARTIAL THROMBO TIME 62.2 SEC (22.5-37.2)
[2016-07-09 01:54] LABS: CALCIUM, SERUM 7.7 MG/DL (8.5-10.4); CHLORIDE, SERUM 99 MMOL/L (96-112); CO2 (CARBON DIOXIDE) 23 MMOL/L (24-34); GFR AFRICAN AMERICAN 31 ML/MIN (>=60); GFR NON AFRICAN AMERICAN 27 ML/MIN (>=60); POTASSIUM, SERUM 4.3 MMOL/L (3.5-5.3); SODIUM, SERUM 132 MMOL/L (135-148)
[2016-07-09 01:59] LABS: BUN (BLOOD UREA NITROGEN) 64 MG/DL (6-23); GLUCOSE, SERUM 218 MG/DL (60-99)
[2016-07-09 02:02] LABS: ANISOCYTOSIS 1+ (5-10/OIF) (0-5/OIF); BURR CELLS 1+ (3-10/OIF) (0-2/OIF); PLATELET ESTIMATE DEC (ADEQUATE)
[2016-07-09 14:49] LABS: INTERNATIONAL NORMAL RATI 1.8 UNITS (-); PROTIME (NOT ORD) 20.3 SEC (12.0-14.5)
[2016-07-09 14:50] LABS: PARTIAL THROMBO TIME 70.4 SEC (22.5-37.2)
[2016-07-09 14:54] LABS: DIRECT BILIRUBIN 0.4 MG/DL (0.0-0.4); TOTAL PROTEIN 4.9 G/DL (6.0-8.5)
[2016-07-09 14:55] LABS: ALBUMIN 2.4 G/DL (3.5-5.0); TOTAL BILIRUBIN 1.4 MG/DL (0-1.2)
[2016-07-09 15:49] LABS: ALPHA FETOPROTEIN (TUMOR) 1.6 NG/ML (< 8.0)
[2016-07-10 11:27] LABS: BASOPHILS 0 %; EOSINOPHILS ABSOLUTE 0.06 10/3/uL (0.0-0.53); HEMATOCRIT 31.3 % (40.0-51.0); HEMOGLOBIN 10.3 g/dL (13.6-17.8); IMMATURE GRANULOCYTES 0.2 %; IMMATURE GRANULOCYTES ABSOLUTE 0.01 10/3/uL (0.0-0.11); LYMPHOCYTES 10.6 %; LYMPHOCYTES ABSOLUTE 0.63 10/3/uL (0.67-4.30); MEAN CORPUS HGB CONC 32.9 g/dL (32.0-36.0); MEAN CORPUSCULAR VOLUME 85.1 fL (80-100); MEAN PLATELET VOLUME 10.6 fL (9.2-13.0); MONOCYTES 2.5 %; MONOCYTES ABSOLUTE 0.15 10/3/uL (0.21-1.20); NEUTROPHILS 85.7 %; NEUTROPHILS ABSOLUTE 5.09 10/3/uL (2.02-8.40); PLATELET COUNT 75 10/3/uL (150-400); RBC DISTRIBUTION WIDTH 16.4 % (12.0-16.0); RED CELL COUNT 3.68 10/6/uL (4.7-6.1); WHITE BLOOD CELLS 5.9 10/3/uL (4.5-10.5)
[2016-07-10 11:28] LABS: MANUAL DIFF NO %
[2016-07-10 11:35] LABS: INTERNATIONAL NORMAL RATI 1.7 UNITS (-); PROTIME (NOT ORD) 19.8 SEC (12.0-14.5)
[2016-07-10 11:36] LABS: CALCIUM, SERUM 7.7 MG/DL (8.5-10.4); CHLORIDE, SERUM 103 MMOL/L (96-112); CO2 (CARBON DIOXIDE) 25 MMOL/L (24-34); CREATININE 1.86 MG/DL (0.70-1.30); GFR AFRICAN AMERICAN 40 ML/MIN (>=60); GFR NON AFRICAN AMERICAN 34 ML/MIN (>=60); PARTIAL THROMBO TIME 88.1 SEC (22.5-37.2); POTASSIUM, SERUM 3.8 MMOL/L (3.5-5.3); SODIUM, SERUM 134 MMOL/L (135-148)
[2016-07-10 11:37] LABS: BUN (BLOOD UREA NITROGEN) 43 MG/DL (6-23); GLUCOSE, SERUM 120 MG/DL (60-99)
[2016-07-10 11:57] LABS: PLATELET ESTIMATE DEC (ADEQUATE)
[2016-07-10 11:58] LABS: ANISOCYTOSIS 1+ (5-10/OIF) (0-5/OIF); BURR CELLS 1+ (3-10/OIF) (0-2/OIF)
[2016-07-11 04:54] LABS: BASOPHILS 0 %; EOSINOPHILS 1.2 %; EOSINOPHILS ABSOLUTE 0.06 10/3/uL (0.0-0.53); HEMOGLOBIN 9.2 g/dL (13.6-17.8); IMMATURE GRANULOCYTES 0.4 %; IMMATURE GRANULOCYTES ABSOLUTE 0.02 10/3/uL (0.0-0.11); LYMPHOCYTES 11.1 %; LYMPHOCYTES ABSOLUTE 0.57 10/3/uL (0.67-4.30); MEAN CORPUS HGB CONC 33.2 g/dL (32.0-36.0); MEAN CORPUSCULAR HEMOGLOB 28.5 pg (26.0-34.0); MEAN CORPUSCULAR VOLUME 85.8 fL (80-100); MEAN PLATELET VOLUME 10.3 fL (9.2-13.0); MONOCYTES 4.5 %; MONOCYTES ABSOLUTE 0.23 10/3/uL (0.21-1.20); NEUTROPHILS 82.8 %; NEUTROPHILS ABSOLUTE 4.26 10/3/uL (2.02-8.40); PLATELET COUNT 76 10/3/uL (150-400); RBC DISTRIBUTION WIDTH 16.4 % (12.0-16.0); RED CELL COUNT 3.23 10/6/uL (4.7-6.1); WHITE BLOOD CELLS 5.1 10/3/uL (4.5-10.5)
[2016-07-11 04:55] LABS: HEMATOCRIT 27.7 % (40.0-51.0); MANUAL DIFF NO %
[2016-07-11 04:58] LABS: INTERNATIONAL NORMAL RATI 1.6 UNITS (-); PROTIME (NOT ORD) 19.2 SEC (12.0-14.5)
[2016-07-11 05:05] LABS: BUN (BLOOD UREA NITROGEN) 40 MG/DL (6-23); CALCIUM, SERUM 7.8 MG/DL (8.5-10.4); CHLORIDE, SERUM 104 MMOL/L (96-112); CO2 (CARBON DIOXIDE) 22 MMOL/L (24-34); GFR AFRICAN AMERICAN 48 ML/MIN (>=60); GFR NON AFRICAN AMERICAN 41 ML/MIN (>=60); SODIUM, SERUM 134 MMOL/L (135-148)
[2016-07-11 05:06] LABS: GLUCOSE, SERUM 80 MG/DL (60-99)
[2016-07-11 05:20] LABS: PLATELET ESTIMATE DEC (ADEQUATE)
[2016-07-11 05:21] LABS: ANISOCYTOSIS 1+ (5-10/OIF) (0-5/OIF)
[2016-07-11 05:22] LABS: SCHISTOCYTES FEW (3-10/OIF)
[2016-07-11 05:27] LABS: RBC MORPHOLOGY ABN (NORMAL)
[2016-07-11 10:22] LABS: HEPATITIS B SURFACE ANTIGEN NON-REACTIVE (NON-REACT)
[2016-07-11 10:50] LABS: HEPATITIS B CORE AB IGM NON-REACTIVE (NON-REAC); HEPATITIS C ANTIBODY NON-REACTIVE (NON-REACT)
[2016-07-11 10:52] LABS: HEP A ANTIBODY IGM NON-REACTIVE (NON-REACT)
[2016-07-11 21:05] LABS: BE (BASE EXCESS) -4.8 MEQ/L (0 +/- 2.5); HCO3 (ACTUAL BICARBONATE) 20.2 MEQ/L (23-27); HEMOBLOGIN CONTENT 9.9 G/DL (14-18); INSTRUMENT SERIAL # 11843; METHEMOGLOBIN 0.4 % (0-3); MODE SIMV; O2 CONTENT 13.6 VOL% (18-24); OPERATOR ID 17370; PCO2 (CO2 TENSION) 37 MMHG (35-45); PO2 (O2 TENSION) 107 MMHG (79-93); SAMPLE Arterial; TIDAL VOLUME 600 ML; pH 7.36 (7.37-7.43)
[2016-07-11 21:15] LABS: BASOPHILS 0 %; EOSINOPHILS 0.6 %; EOSINOPHILS ABSOLUTE 0.03 10/3/uL (0.0-0.53); HEMATOCRIT 29.1 % (40.0-51.0); HEMOGLOBIN 9.8 g/dL (13.6-17.8); IMMATURE GRANULOCYTES 0.4 %; IMMATURE GRANULOCYTES ABSOLUTE 0.02 10/3/uL (0.0-0.11); MEAN CORPUS HGB CONC 33.7 g/dL (32.0-36.0); MEAN CORPUSCULAR HEMOGLOB 28.8 pg (26.0-34.0); MEAN CORPUSCULAR VOLUME 85.6 fL (80-100); MEAN PLATELET VOLUME 10.4 fL (9.2-13.0); MONOCYTES 3.8 %; MONOCYTES ABSOLUTE 0.19 10/3/uL (0.21-1.20); NEUTROPHILS 85.2 %; NEUTROPHILS ABSOLUTE 4.25 10/3/uL (2.02-8.40); PLATELET COUNT 88 10/3/uL (150-400); RBC DISTRIBUTION WIDTH 16.4 % (12.0-16.0)
[2016-07-11 21:17] LABS: MANUAL DIFF NO %
[2016-07-11 21:28] LABS: BUN (BLOOD UREA NITROGEN) 31 MG/DL (6-23); CALCIUM, SERUM 7.9 MG/DL (8.5-10.4); CHLORIDE, SERUM 103 MMOL/L (96-112); CO2 (CARBON DIOXIDE) 25 MMOL/L (24-34); CREATININE 1.56 MG/DL (0.70-1.30); GFR AFRICAN AMERICAN 49 ML/MIN (>=60); GFR NON AFRICAN AMERICAN 43 ML/MIN (>=60); GLUCOSE, SERUM 100 MG/DL (60-99); POTASSIUM, SERUM 4.5 MMOL/L (3.5-5.3); SODIUM, SERUM 135 MMOL/L (135-148)
[2016-07-12 03:56] LABS: BASOPHILS 0 %; EOSINOPHILS 0.3 %; EOSINOPHILS ABSOLUTE 0.01 10/3/uL (0.0-0.53); HEMOGLOBIN 8.7 g/dL (13.6-17.8); IMMATURE GRANULOCYTES 0.5 %; IMMATURE GRANULOCYTES ABSOLUTE 0.02 10/3/uL (0.0-0.11); LYMPHOCYTES ABSOLUTE 0.15 10/3/uL (0.67-4.30); MEAN CORPUS HGB CONC 33.6 g/dL (32.0-36.0); MEAN CORPUSCULAR HEMOGLOB 28.8 pg (26.0-34.0); MEAN CORPUSCULAR VOLUME 85.8 fL (80-100); MEAN PLATELET VOLUME 9.5 fL (9.2-13.0); MONOCYTES 4.7 %; MONOCYTES ABSOLUTE 0.18 10/3/uL (0.21-1.20); NEUTROPHILS 90.5 %; NEUTROPHILS ABSOLUTE 3.43 10/3/uL (2.02-8.40); PLATELET COUNT 94 10/3/uL (150-400); RBC DISTRIBUTION WIDTH 16.5 % (12.0-16.0); RED CELL COUNT 3.02 10/6/uL (4.7-6.1); WHITE BLOOD CELLS 3.8 10/3/uL (4.5-10.5)
[2016-07-12 03:59] LABS: HEMATOCRIT 25.9 % (40.0-51.0); MANUAL DIFF NO %
[2016-07-12 04:17] LABS: BUN (BLOOD UREA NITROGEN) 27 MG/DL (6-23); CALCIUM, SERUM 7.7 MG/DL (8.5-10.4); CHLORIDE, SERUM 106 MMOL/L (96-112); CO2 (CARBON DIOXIDE) 25 MMOL/L (24-34); CREATININE 1.45 MG/DL (0.70-1.30); GFR AFRICAN AMERICAN 54 ML/MIN (>=60); GFR NON AFRICAN AMERICAN 46 ML/MIN (>=60); GLUCOSE, SERUM 147 MG/DL (60-99); POTASSIUM, SERUM 4.4 MMOL/L (3.5-5.3); SODIUM, SERUM 139 MMOL/L (135-148)
[2016-07-13 03:42] LABS: BASOPHILS 0 %; EOSINOPHILS 0.8 %; EOSINOPHILS ABSOLUTE 0.04 10/3/uL (0.0-0.53); HEMATOCRIT 26.1 % (40.0-51.0); HEMOGLOBIN 8.9 g/dL (13.6-17.8); IMMATURE GRANULOCYTES 0.6 %; IMMATURE GRANULOCYTES ABSOLUTE 0.03 10/3/uL (0.0-0.11); LYMPHOCYTES 7.2 %; LYMPHOCYTES ABSOLUTE 0.38 10/3/uL (0.67-4.30); MANUAL DIFF NO %; MEAN CORPUS HGB CONC 34.1 g/dL (32.0-36.0); MEAN CORPUSCULAR HEMOGLOB 29.5 pg (26.0-34.0); MEAN CORPUSCULAR VOLUME 86.4 fL (80-100); MEAN PLATELET VOLUME 9.3 fL (9.2-13.0); MONOCYTES 4.9 %; MONOCYTES ABSOLUTE 0.26 10/3/uL (0.21-1.20); NEUTROPHILS 86.5 %; NEUTROPHILS ABSOLUTE 4.59 10/3/uL (2.02-8.40); PLATELET COUNT 119 10/3/uL (150-400); RBC DISTRIBUTION WIDTH 16.6 % (12.0-16.0); RED CELL COUNT 3.02 10/6/uL (4.7-6.1); WHITE BLOOD CELLS 5.3 10/3/uL (4.5-10.5)
[2016-07-13 03:50] LABS: INTERNATIONAL NORMAL RATI 1.5 UNITS (-); PARTIAL THROMBO TIME 36.2 SEC (22.5-37.2); PROTIME (NOT ORD) 17.7 SEC (12.0-14.5)
[2016-07-13 04:03] LABS: BUN (BLOOD UREA NITROGEN) 26 MG/DL (6-23); CALCIUM, SERUM 8.1 MG/DL (8.5-10.4); CHLORIDE, SERUM 103 MMOL/L (96-112); CO2 (CARBON DIOXIDE) 24 MMOL/L (24-34); CREATININE 1.56 MG/DL (0.70-1.30); GFR AFRICAN AMERICAN 49 ML/MIN (>=60); GFR NON AFRICAN AMERICAN 43 ML/MIN (>=60); PHOSPHORUS, SERUM 1.8 MG/DL (2.5-4.5); POTASSIUM, SERUM 5.1 MMOL/L (3.5-5.3); SODIUM, SERUM 137 MMOL/L (135-148)
[2016-07-13 04:07] LABS: GLUCOSE, SERUM 224 MG/DL (60-99)
[2016-07-14 06:59] LABS: BASOPHILS 0.2 %; BASOPHILS ABSOLUTE 0.01 10/3/uL (0.0-0.16); EOSINOPHILS 0.4 %; EOSINOPHILS ABSOLUTE 0.02 10/3/uL (0.0-0.53); HEMATOCRIT 26.8 % (40.0-51.0); HEMOGLOBIN 8.8 g/dL (13.6-17.8); IMMATURE GRANULOCYTES ABSOLUTE 0.05 10/3/uL (0.0-0.11); LYMPHOCYTES 11.3 %; LYMPHOCYTES ABSOLUTE 0.54 10/3/uL (0.67-4.30); MEAN CORPUS HGB CONC 32.8 g/dL (32.0-36.0); MEAN CORPUSCULAR VOLUME 88.4 fL (80-100); MONOCYTES 5.6 %; MONOCYTES ABSOLUTE 0.27 10/3/uL (0.21-1.20); NEUTROPHILS 81.5 %; PLATELET COUNT 131 10/3/uL (150-400); RBC DISTRIBUTION WIDTH 16.7 % (12.0-16.0); RED CELL COUNT 3.03 10/6/uL (4.7-6.1); WHITE BLOOD CELLS 4.8 10/3/uL (4.5-10.5)
[2016-07-14 07:01] LABS: MANUAL DIFF NO %
[2016-07-14 07:19] LABS: A/G RATIO 0.7 (0.7-1.9); ALBUMIN 2.2 G/DL (3.5-5.0); ALKALINE PHOSPHATASE 79 U/L (45-117); CALCIUM, SERUM 8.8 MG/DL (8.5-10.4); CHLORIDE, SERUM 99 MMOL/L (96-112); CREATININE 1.56 MG/DL (0.70-1.30); GFR AFRICAN AMERICAN 49 ML/MIN (>=60); GFR NON AFRICAN AMERICAN 43 ML/MIN (>=60); GLOBULIN 3.1 G/DL (2.5-4.1); POTASSIUM, SERUM 5.2 MMOL/L (3.5-5.3); SGOT(AST) 21 U/L (5-40); SGPT(ALT) 20 U/L (5-65); SODIUM, SERUM 134 MMOL/L (135-148); TOTAL PROTEIN 5.3 G/DL (6.0-8.5)
[2016-07-14 07:20] LABS: BUN (BLOOD UREA NITROGEN) 30 MG/DL (6-23); CO2 (CARBON DIOXIDE) 29 MMOL/L (24-34); GLUCOSE, SERUM 163 MG/DL (60-99); PHOSPHORUS, SERUM 2.4 MG/DL (2.5-4.5); TOTAL BILIRUBIN 0.8 MG/DL (0-1.2)
[2016-07-14 11:34] LABS: INTERNATIONAL NORMAL RATI 1.3 UNITS (-); PROTIME (NOT ORD) 16.1 SEC (12.0-14.5)
[2016-07-14 11:35] LABS: PARTIAL THROMBO TIME 32.6 SEC (22.5-37.2)
[2016-07-15 04:44] LABS: BASOPHILS 0.2 %; BASOPHILS ABSOLUTE 0.01 10/3/uL (0.0-0.16); BUN (BLOOD UREA NITROGEN) 29 MG/DL (6-23); CALCIUM, SERUM 8.4 MG/DL (8.5-10.4); CHLORIDE, SERUM 99 MMOL/L (96-112); CO2 (CARBON DIOXIDE) 29 MMOL/L (24-34); CREATININE 1.28 MG/DL (0.70-1.30); EOSINOPHILS ABSOLUTE 0.04 10/3/uL (0.0-0.53); GFR AFRICAN AMERICAN 63 ML/MIN (>=60); GFR NON AFRICAN AMERICAN 54 ML/MIN (>=60); GLUCOSE, SERUM 156 MG/DL (60-99); HEMATOCRIT 25.4 % (40.0-51.0); HEMOGLOBIN 8.2 g/dL (13.6-17.8); IMMATURE GRANULOCYTES 1.5 %; IMMATURE GRANULOCYTES ABSOLUTE 0.06 10/3/uL (0.0-0.11); LYMPHOCYTES 12.3 %; MEAN CORPUS HGB CONC 32.3 g/dL (32.0-36.0); MEAN CORPUSCULAR VOLUME 86.7 fL (80-100); MEAN PLATELET VOLUME 9.7 fL (9.2-13.0); MONOCYTES 4.2 %; MONOCYTES ABSOLUTE 0.17 10/3/uL (0.21-1.20); NEUTROPHILS 80.8 %; PLATELET COUNT 121 10/3/uL (150-400); POTASSIUM, SERUM 4.6 MMOL/L (3.5-5.3); RBC DISTRIBUTION WIDTH 16.8 % (12.0-16.0); RED CELL COUNT 2.93 10/6/uL (4.7-6.1); SODIUM, SERUM 137 MMOL/L (135-148); WHITE BLOOD CELLS 4.1 10/3/uL (4.5-10.5)
[2016-07-15 04:54] LABS: MANUAL DIFF NO %
[2016-07-16 03:52] LABS: INTERNATIONAL NORMAL RATI 1.4 UNITS (-); PROTIME (NOT ORD) 16.8 SEC (12.0-14.5)
[2016-07-16 03:58] LABS: CALCIUM, SERUM 8.3 MG/DL (8.5-10.4); CHLORIDE, SERUM 100 MMOL/L (96-112); CO2 (CARBON DIOXIDE) 31 MMOL/L (24-34); CREATININE 1.45 MG/DL (0.70-1.30); GFR AFRICAN AMERICAN 54 ML/MIN (>=60); GFR NON AFRICAN AMERICAN 46 ML/MIN (>=60); GLUCOSE, SERUM 146 MG/DL (60-99); POTASSIUM, SERUM 4.5 MMOL/L (3.5-5.3); SODIUM, SERUM 138 MMOL/L (135-148)
[2016-07-16 04:05] LABS: BUN (BLOOD UREA NITROGEN) 34 MG/DL (6-23)
[2016-07-16 04:49] LABS: HEMATOCRIT 26.9 % (40.0-51.0); HEMOGLOBIN 8.6 g/dL (13.6-17.8); MEAN CORPUSCULAR HEMOGLOB 28.2 pg (26.0-34.0); MEAN CORPUSCULAR VOLUME 88.2 fL (80-100); MEAN PLATELET VOLUME 10.5 fL (9.2-13.0); PLATELET COUNT 131 10/3/uL (150-400); RBC DISTRIBUTION WIDTH 16.8 % (12.0-16.0); RED CELL COUNT 3.05 10/6/uL (4.7-6.1); WHITE BLOOD CELLS 4.4 10/3/uL (4.5-10.5)
[2016-07-16 04:50] LABS: MANUAL DIFF YES %
[2016-07-16 06:19] LABS: BAND NEUTROPHILS 8 %; ELLIPTOCYTES 1+ (3-10/OIF) (0-2/OIF); EOSINOPHILS 2 %; EOSINOPHILS ABSOLUTE (CALC) 0.09 10/3/uL (0.0-0.53); HELMET CELLS OCC (0-2/OIF); IMMATURE GRANS ABSOLUTE (CALC) 0.04 10/3/uL (0.0-0.11); LYMPHOCYTES 13 %; LYMPHOCYTES ABSOLUTE (CALC) 0.57 10/3/uL (0.67-4.30); METAMYELOCYTES 1 %; MONOCYTES 3 %; MONOCYTES ABSOLUTE (CALC) 0.13 10/3/uL (0.21-1.20); NEUTROPHILS ABSOLUTE (CALC) 3.56 10/3/uL (2.02-8.40); PLATELET ESTIMATE SLT DEC (ADEQUATE); SEGMENTED NEUTROPHIL (0) 73 %; TEARDROP SHAPED RBCS OCC (0-2/OIF); TOTAL NUCLEATED CELLS 100
[2016-07-16 06:20] LABS: GIANT PLATELET OCC; POLYCHROMASIA 1+ (2-5/OIF) (0-1/OIF)
[2016-07-16 06:21] LABS: HYPOCHROMIA 1+ (3-10/OIF) (0-2/OIF); TARGET CELLS OCC (1-2/OIF) (0-1/OIF)
[2016-07-16 06:22] LABS: ANISOCYTOSIS 1+ (5-10/OIF) (0-5/OIF); MACROCYTES 1+ (5-10/OIF) (0-5/OIF); MICROCYTES 1+ (5-10/OIF) (0-5/OIF)
[2016-07-17 05:20] LABS: HEMATOCRIT 24.8 % (40.0-51.0); HEMOGLOBIN 8.1 g/dL (13.6-17.8); MEAN CORPUS HGB CONC 32.7 g/dL (32.0-36.0); MEAN CORPUSCULAR HEMOGLOB 28.5 pg (26.0-34.0); MEAN CORPUSCULAR VOLUME 87.3 fL (80-100); MEAN PLATELET VOLUME 9.6 fL (9.2-13.0); PLATELET COUNT 126 10/3/uL (150-400); RBC DISTRIBUTION WIDTH 17.1 % (12.0-16.0); RED CELL COUNT 2.84 10/6/uL (4.7-6.1); WHITE BLOOD CELLS 4.6 10/3/uL (4.5-10.5)
[2016-07-17 05:21] LABS: INTERNATIONAL NORMAL RATI 1.6 UNITS (-); PROTIME (NOT ORD) 18.5 SEC (12.0-14.5)
[2016-07-17 05:23] LABS: MANUAL DIFF YES %
[2016-07-17 05:26] LABS: CALCIUM, SERUM 8.1 MG/DL (8.5-10.4); CHLORIDE, SERUM 100 MMOL/L (96-112); CO2 (CARBON DIOXIDE) 29 MMOL/L (24-34); CREATININE 1.41 MG/DL (0.70-1.30); GFR AFRICAN AMERICAN 56 ML/MIN (>=60); GFR NON AFRICAN AMERICAN 48 ML/MIN (>=60); GLUCOSE, SERUM 159 MG/DL (60-99); POTASSIUM, SERUM 4.6 MMOL/L (3.5-5.3); SODIUM, SERUM 136 MMOL/L (135-148)
[2016-07-17 05:27] LABS: BUN (BLOOD UREA NITROGEN) 30 MG/DL (6-23)
[2016-07-17 06:21] LABS: BAND NEUTROPHILS 12 %; EOSINOPHILS 3 %; EOSINOPHILS ABSOLUTE (CALC) 0.14 10/3/uL (0.0-0.53); IMMATURE GRANS ABSOLUTE (CALC) 0.09 10/3/uL (0.0-0.11); LYMPHOCYTES 13 %; METAMYELOCYTES 2 %; MONOCYTES 4 %; MONOCYTES ABSOLUTE (CALC) 0.18 10/3/uL (0.21-1.20); NEUTROPHILS ABSOLUTE (CALC) 3.59 10/3/uL (2.02-8.40); SEGMENTED NEUTROPHIL (0) 66 %; TOTAL NUCLEATED CELLS 100
[2016-07-17 06:24] LABS: ANISOCYTOSIS 1+ (5-10/OIF) (0-5/OIF); HELMET CELLS OCC (0-2/OIF); MACROCYTES 1+ (5-10/OIF) (0-5/OIF); PLATELET ESTIMATE SLT DEC (ADEQUATE); POLYCHROMASIA 1+ (2-5/OIF) (0-1/OIF); SCHISTOCYTES OCC (0-2/OIF); TARGET CELLS OCC (1-2/OIF) (0-1/OIF); TEARDROP SHAPED RBCS OCC (0-2/OIF)
[2016-07-17 06:25] LABS: MICROCYTES 1+ (5-10/OIF) (0-5/OIF); TOXIC GRANULATION SLT
[2016-07-17 18:51] LABS: % IRON SAT 16 % (20-50); FERRITIN 1211 NG/ML (26-388); IRON BINDING CAPACITY 236 MCG/DL (250-450); IRON, SERUM 38 MCG/DL (35-150)
[2016-07-17 18:59] LABS: FOLATE 78.2 NG/ML (>5.2)
[2016-07-18 06:52] LABS: BASOPHILS 0.2 %; BASOPHILS ABSOLUTE 0.01 10/3/uL (0.0-0.16); EOSINOPHILS 0.6 %; EOSINOPHILS ABSOLUTE 0.03 10/3/uL (0.0-0.53); HEMATOCRIT 23.2 % (40.0-51.0); HEMOGLOBIN 7.6 g/dL (13.6-17.8); IMMATURE GRANULOCYTES 2.4 %; IMMATURE GRANULOCYTES ABSOLUTE 0.11 10/3/uL (0.0-0.11); LYMPHOCYTES 15.6 %; LYMPHOCYTES ABSOLUTE 0.73 10/3/uL (0.67-4.30); MEAN CORPUS HGB CONC 32.8 g/dL (32.0-36.0); MEAN CORPUSCULAR HEMOGLOB 28.5 pg (26.0-34.0); MEAN CORPUSCULAR VOLUME 86.9 fL (80-100); MONOCYTES 4.1 %; MONOCYTES ABSOLUTE 0.19 10/3/uL (0.21-1.20); NEUTROPHILS 77.1 %; PLATELET COUNT 134 10/3/uL (150-400); RBC DISTRIBUTION WIDTH 17.5 % (12.0-16.0); RED CELL COUNT 2.67 10/6/uL (4.7-6.1); WHITE BLOOD CELLS 4.7 10/3/uL (4.5-10.5)
[2016-07-18 06:54] LABS: MANUAL DIFF NO %
[2016-07-18 07:05] LABS: ALBUMIN 2.6 G/DL (3.5-5.0); BUN (BLOOD UREA NITROGEN) 27 MG/DL (6-23); CALCIUM, SERUM 8.2 MG/DL (8.5-10.4); CHLORIDE, SERUM 98 MMOL/L (96-112); CO2 (CARBON DIOXIDE) 29 MMOL/L (24-34); CREATININE 1.65 MG/DL (0.70-1.30); GFR AFRICAN AMERICAN 46 ML/MIN (>=60); GFR NON AFRICAN AMERICAN 40 ML/MIN (>=60); PHOSPHORUS, SERUM 2.1 MG/DL (2.5-4.5); SODIUM, SERUM 134 MMOL/L (135-148)
[2016-07-18 07:06] LABS: GLUCOSE, SERUM 124 MG/DL (60-99)
[2016-07-18 07:10] LABS: INTERNATIONAL NORMAL RATI 1.7 UNITS (-); PROTIME (NOT ORD) 19.4 SEC (12.0-14.5)
[2016-07-18 07:11] LABS: PARTIAL THROMBO TIME 77.9 SEC (22.5-37.2)
[2016-07-19 08:19] LABS: BASOPHILS 0.2 %; BASOPHILS ABSOLUTE 0.01 10/3/uL (0.0-0.16); EOSINOPHILS 0.6 %; EOSINOPHILS ABSOLUTE 0.03 10/3/uL (0.0-0.53); HEMATOCRIT 21.6 % (40.0-51.0); IMMATURE GRANULOCYTES 2.4 %; IMMATURE GRANULOCYTES ABSOLUTE 0.13 10/3/uL (0.0-0.11); LYMPHOCYTES ABSOLUTE 0.43 10/3/uL (0.67-4.30); MANUAL DIFF NO %; MEAN CORPUS HGB CONC 32.4 g/dL (32.0-36.0); MEAN CORPUSCULAR HEMOGLOB 28.7 pg (26.0-34.0); MEAN CORPUSCULAR VOLUME 88.5 fL (80-100); MEAN PLATELET VOLUME 9.7 fL (9.2-13.0); MONOCYTES 4.1 %; MONOCYTES ABSOLUTE 0.22 10/3/uL (0.21-1.20); NEUTROPHILS 84.7 %; NEUTROPHILS ABSOLUTE 4.58 10/3/uL (2.02-8.40); PLATELET COUNT 146 10/3/uL (150-400); RBC DISTRIBUTION WIDTH 17.6 % (12.0-16.0); RED CELL COUNT 2.44 10/6/uL (4.7-6.1); WHITE BLOOD CELLS 5.4 10/3/uL (4.5-10.5)
[2016-07-19 08:26] LABS: INTERNATIONAL NORMAL RATI 1.7 UNITS (-); PARTIAL THROMBO TIME 80.2 SEC (22.5-37.2); PROTIME (NOT ORD) 20.2 SEC (12.0-14.5)
[2016-07-19 08:31] LABS: BUN (BLOOD UREA NITROGEN) 25 MG/DL (6-23); CALCIUM, SERUM 8.5 MG/DL (8.5-10.4); CHLORIDE, SERUM 96 MMOL/L (96-112); CO2 (CARBON DIOXIDE) 32 MMOL/L (24-34); CREATININE 1.81 MG/DL (0.70-1.30); GFR AFRICAN AMERICAN 41 ML/MIN (>=60); GFR NON AFRICAN AMERICAN 36 ML/MIN (>=60); GLUCOSE, SERUM 180 MG/DL (60-99); PHOSPHORUS, SERUM 3.2 MG/DL (2.5-4.5); POTASSIUM, SERUM 3.4 MMOL/L (3.5-5.3); SODIUM, SERUM 137 MMOL/L (135-148)
[2016-07-20 05:12] LABS: ALLENS TEST Pos; BE (BASE EXCESS) 7.4 MEQ/L (0 +/- 2.5); CARBOXYHEMOGLOBIN 0.4 % (0-3); DEVICE CPAP; HCO3 (ACTUAL BICARBONATE) 29.7 MEQ/L (23-27); HEMOBLOGIN CONTENT 9.6 G/DL (14-18); INSTRUMENT SERIAL # 8083; O2 CONTENT 13.4 VOL% (18-24); OPERATOR ID 35190; PCO2 (CO2 TENSION) 33 MMHG (35-45); PO2 (O2 TENSION) 120 MMHG (79-93); SAMPLE Arterial; pH 7.57 (7.37-7.43)
[2016-07-20 05:12] LABS: BASOPHILS 0.3 %; BASOPHILS ABSOLUTE 0.02 10/3/uL (0.0-0.16); EOSINOPHILS 0.5 %; EOSINOPHILS ABSOLUTE 0.03 10/3/uL (0.0-0.53); IMMATURE GRANULOCYTES 3.1 %; IMMATURE GRANULOCYTES ABSOLUTE 0.18 10/3/uL (0.0-0.11); LYMPHOCYTES 12.3 %; LYMPHOCYTES ABSOLUTE 0.72 10/3/uL (0.67-4.30); MEAN CORPUS HGB CONC 33.2 g/dL (32.0-36.0); MEAN CORPUSCULAR HEMOGLOB 29.3 pg (26.0-34.0); MEAN CORPUSCULAR VOLUME 88.2 fL (80-100); MEAN PLATELET VOLUME 10.2 fL (9.2-13.0); MONOCYTES 4.1 %; MONOCYTES ABSOLUTE 0.24 10/3/uL (0.21-1.20); NEUTROPHILS 79.7 %; NEUTROPHILS ABSOLUTE 4.68 10/3/uL (2.02-8.40); PLATELET COUNT 167 10/3/uL (150-400); RBC DISTRIBUTION WIDTH 17.2 % (12.0-16.0); WHITE BLOOD CELLS 5.9 10/3/uL (4.5-10.5)
[2016-07-20 05:14] LABS: HEMATOCRIT 28.3 % (40.0-51.0); HEMOGLOBIN 9.4 g/dL (13.6-17.8); MANUAL DIFF NO %; RED CELL COUNT 3.21 10/6/uL (4.7-6.1)
[2016-07-20 05:22] LABS: INTERNATIONAL NORMAL RATI 1.9 UNITS (-); PROTIME (NOT ORD) 21.7 SEC (12.0-14.5)
[2016-07-20 05:25] LABS: PARTIAL THROMBO TIME 127.8 SEC (22.5-37.2)
[2016-07-20 05:29] LABS: BUN (BLOOD UREA NITROGEN) 25 MG/DL (6-23); CHLORIDE, SERUM 97 MMOL/L (96-112); CO2 (CARBON DIOXIDE) 33 MMOL/L (24-34); CREATININE 1.93 MG/DL (0.70-1.30); GFR AFRICAN AMERICAN 38 ML/MIN (>=60); GFR NON AFRICAN AMERICAN 33 ML/MIN (>=60); GLUCOSE, SERUM 144 MG/DL (60-99); POTASSIUM, SERUM 3.6 MMOL/L (3.5-5.3); SODIUM, SERUM 139 MMOL/L (135-148)
[2016-07-20 14:53] LABS: ASCORBIC ACID (UR NOT ORDER) NEG (NEG); BILIRUBIN, URINE NEGATIVE (NEG); KETONE, URINE NEGATIVE (NEG); LEUKOCYTE ESTERASE(NOT OR LARGE (NEG)
[2016-07-20 14:54] LABS: WBC (NOT ORDERED) (RFLEX) > 182 (0-5)
[2016-07-21 04:59] LABS: BASOPHILS 0.5 %; BASOPHILS ABSOLUTE 0.03 10/3/uL (0.0-0.16); EOSINOPHILS 0.5 %; EOSINOPHILS ABSOLUTE 0.03 10/3/uL (0.0-0.53); HEMATOCRIT 29.8 % (40.0-51.0); HEMOGLOBIN 9.6 g/dL (13.6-17.8); IMMATURE GRANULOCYTES 2.2 %; IMMATURE GRANULOCYTES ABSOLUTE 0.14 10/3/uL (0.0-0.11); LYMPHOCYTES ABSOLUTE 0.97 10/3/uL (0.67-4.30); MEAN CORPUS HGB CONC 32.2 g/dL (32.0-36.0); MEAN CORPUSCULAR HEMOGLOB 28.7 pg (26.0-34.0); MEAN CORPUSCULAR VOLUME 89.2 fL (80-100); MEAN PLATELET VOLUME 10.4 fL (9.2-13.0); MONOCYTES 5.4 %; MONOCYTES ABSOLUTE 0.35 10/3/uL (0.21-1.20); NEUTROPHILS 76.4 %; NEUTROPHILS ABSOLUTE 4.95 10/3/uL (2.02-8.40); PLATELET COUNT 215 10/3/uL (150-400); RBC DISTRIBUTION WIDTH 17.4 % (12.0-16.0); RED CELL COUNT 3.34 10/6/uL (4.7-6.1); WHITE BLOOD CELLS 6.5 10/3/uL (4.5-10.5)
[2016-07-21 05:01] LABS: MANUAL DIFF NO %
[2016-07-21 05:04] LABS: PROTIME (NOT ORD) 22.5 SEC (12.0-14.5)
[2016-07-21 05:08] LABS: ALBUMIN 2.9 G/DL (3.5-5.0); CHLORIDE, SERUM 96 MMOL/L (96-112); CO2 (CARBON DIOXIDE) 35 MMOL/L (24-34); GFR AFRICAN AMERICAN 36 ML/MIN (>=60); GFR NON AFRICAN AMERICAN 31 ML/MIN (>=60); GLUCOSE, SERUM 151 MG/DL (60-99); PHOSPHORUS, SERUM 2.7 MG/DL (2.5-4.5); POTASSIUM, SERUM 3.9 MMOL/L (3.5-5.3); SODIUM, SERUM 138 MMOL/L (135-148)
[2016-07-21 05:13] LABS: BUN (BLOOD UREA NITROGEN) 30 MG/DL (6-23)
[2016-07-22 05:58] LABS: BASOPHILS 0.4 %; BASOPHILS ABSOLUTE 0.03 10/3/uL (0.0-0.16); EOSINOPHILS ABSOLUTE 0.07 10/3/uL (0.0-0.53); HEMATOCRIT 30.1 % (40.0-51.0); HEMOGLOBIN 9.5 g/dL (13.6-17.8); IMMATURE GRANULOCYTES 2.4 %; IMMATURE GRANULOCYTES ABSOLUTE 0.16 10/3/uL (0.0-0.11); LYMPHOCYTES 16.3 %; LYMPHOCYTES ABSOLUTE 1.09 10/3/uL (0.67-4.30); MANUAL DIFF NO %; MEAN CORPUS HGB CONC 31.6 g/dL (32.0-36.0); MEAN CORPUSCULAR HEMOGLOB 28.3 pg (26.0-34.0); MEAN CORPUSCULAR VOLUME 89.6 fL (80-100); MEAN PLATELET VOLUME 10.3 fL (9.2-13.0); MONOCYTES 6.1 %; MONOCYTES ABSOLUTE 0.41 10/3/uL (0.21-1.20); NEUTROPHILS 73.8 %; NEUTROPHILS ABSOLUTE 4.92 10/3/uL (2.02-8.40); PLATELET COUNT 266 10/3/uL (150-400); RBC DISTRIBUTION WIDTH 17.7 % (12.0-16.0); RED CELL COUNT 3.36 10/6/uL (4.7-6.1); WHITE BLOOD CELLS 6.7 10/3/uL (4.5-10.5)
[2016-07-22 06:12] LABS: INTERNATIONAL NORMAL RATI 1.9 UNITS (-); PROTIME (NOT ORD) 21.4 SEC (12.0-14.5)
[2016-07-22 06:13] LABS: PARTIAL THROMBO TIME 106.9 SEC (22.5-37.2)
[2016-07-22 06:14] LABS: ALBUMIN 2.8 G/DL (3.5-5.0); BUN (BLOOD UREA NITROGEN) 32 MG/DL (6-23); CALCIUM, SERUM 9.1 MG/DL (8.5-10.4); CHLORIDE, SERUM 92 MMOL/L (96-112); CO2 (CARBON DIOXIDE) 33 MMOL/L (24-34); CREATININE 1.88 MG/DL (0.70-1.30); GFR AFRICAN AMERICAN 39 ML/MIN (>=60); GFR NON AFRICAN AMERICAN 34 ML/MIN (>=60); GLUCOSE, SERUM 171 MG/DL (60-99); PHOSPHORUS, SERUM 3.2 MG/DL (2.5-4.5); SODIUM, SERUM 136 MMOL/L (135-148)
[2016-07-23 06:30] LABS: BASOPHILS 0.5 %; BASOPHILS ABSOLUTE 0.03 10/3/uL (0.0-0.16); EOSINOPHILS 1.4 %; EOSINOPHILS ABSOLUTE 0.08 10/3/uL (0.0-0.53); HEMATOCRIT 28.4 % (40.0-51.0); HEMOGLOBIN 9.3 g/dL (13.6-17.8); IMMATURE GRANULOCYTES 2.7 %; IMMATURE GRANULOCYTES ABSOLUTE 0.16 10/3/uL (0.0-0.11); LYMPHOCYTES 14.2 %; LYMPHOCYTES ABSOLUTE 0.84 10/3/uL (0.67-4.30); MEAN CORPUS HGB CONC 32.7 g/dL (32.0-36.0); MEAN CORPUSCULAR HEMOGLOB 29.4 pg (26.0-34.0); MEAN CORPUSCULAR VOLUME 89.9 fL (80-100); MEAN PLATELET VOLUME 9.9 fL (9.2-13.0); MONOCYTES 6.8 %; NEUTROPHILS 74.4 %; NEUTROPHILS ABSOLUTE 4.39 10/3/uL (2.02-8.40); PLATELET COUNT 299 10/3/uL (150-400); RBC DISTRIBUTION WIDTH 17.3 % (12.0-16.0); RED CELL COUNT 3.16 10/6/uL (4.7-6.1); WHITE BLOOD CELLS 5.9 10/3/uL (4.5-10.5)
[2016-07-23 06:31] LABS: MANUAL DIFF NO %
[2016-07-23 06:33] LABS: INTERNATIONAL NORMAL RATI 1.9 UNITS (-); PROTIME (NOT ORD) 21.3 SEC (12.0-14.5)
[2016-07-23 06:40] LABS: BUN (BLOOD UREA NITROGEN) 31 MG/DL (6-23); CALCIUM, SERUM 9.1 MG/DL (8.5-10.4); CHLORIDE, SERUM 90 MMOL/L (96-112); CO2 (CARBON DIOXIDE) 32 MMOL/L (24-34); CREATININE 1.73 MG/DL (0.70-1.30); GFR AFRICAN AMERICAN 43 ML/MIN (>=60); GFR NON AFRICAN AMERICAN 38 ML/MIN (>=60); GLUCOSE, SERUM 147 MG/DL (60-99); SODIUM, SERUM 132 MMOL/L (135-148)
[2016-07-23 09:56] LABS: FERRITIN 1042 NG/ML (26-388)
[2016-07-24 05:24] LABS: INTERNATIONAL NORMAL RATI 1.8 UNITS (-); PROTIME (NOT ORD) 20.8 SEC (12.0-14.5)
[2016-07-25 03:46] LABS: BUN (BLOOD UREA NITROGEN) 34 MG/DL (6-23); CHLORIDE, SERUM 91 MMOL/L (96-112); CO2 (CARBON DIOXIDE) 33 MMOL/L (24-34); GFR AFRICAN AMERICAN 41 ML/MIN (>=60); GFR NON AFRICAN AMERICAN 36 ML/MIN (>=60); SODIUM, SERUM 136 MMOL/L (135-148)
[2016-07-25 03:48] LABS: GLUCOSE, SERUM 221 MG/DL (60-99); INTERNATIONAL NORMAL RATI 1.8 UNITS (-); PROTIME (NOT ORD) 20.5 SEC (12.0-14.5)
[2016-07-25 03:49] LABS: PARTIAL THROMBO TIME 70.8 SEC (22.5-37.2)
[2016-07-26 05:47] LABS: INTERNATIONAL NORMAL RATI 1.8 UNITS (-); PROTIME (NOT ORD) 20.8 SEC (12.0-14.5)
[2016-07-26 05:48] LABS: PARTIAL THROMBO TIME 72.8 SEC (22.5-37.2)
[2016-07-27 05:28] LABS: HEMOGLOBIN 9.3 g/dL (13.6-17.8)
[2016-07-27 05:36] LABS: INTERNATIONAL NORMAL RATI 2.1 UNITS (-); PROTIME (NOT ORD) 23.2 SEC (12.0-14.5)
[2016-07-27 05:37] LABS: PARTIAL THROMBO TIME 104.7 SEC (22.5-37.2)
[2016-07-27 05:50] LABS: BUN (BLOOD UREA NITROGEN) 34 MG/DL (6-23); CALCIUM, SERUM 9.4 MG/DL (8.5-10.4); CHLORIDE, SERUM 95 MMOL/L (96-112); CO2 (CARBON DIOXIDE) 32 MMOL/L (24-34); CREATININE 2.04 MG/DL (0.70-1.30); GFR AFRICAN AMERICAN 36 ML/MIN (>=60); GFR NON AFRICAN AMERICAN 31 ML/MIN (>=60); POTASSIUM, SERUM 3.9 MMOL/L (3.5-5.3); SODIUM, SERUM 136 MMOL/L (135-148)
[2016-07-27 05:53] LABS: GLUCOSE, SERUM 162 MG/DL (60-99)
[2016-07-28 01:36] LABS: INTERNATIONAL NORMAL RATI 2.2 UNITS (-); PROTIME (NOT ORD) 24.2 SEC (12.0-14.5)
[2016-07-28 01:37] LABS: BUN (BLOOD UREA NITROGEN) 37 MG/DL (6-23); CHLORIDE, SERUM 94 MMOL/L (96-112); CO2 (CARBON DIOXIDE) 32 MMOL/L (24-34); CREATININE 2.17 MG/DL (0.70-1.30); GFR AFRICAN AMERICAN 33 ML/MIN (>=60); GFR NON AFRICAN AMERICAN 29 ML/MIN (>=60); GLUCOSE, SERUM 136 MG/DL (60-99); PARTIAL THROMBO TIME 81.1 SEC (22.5-37.2); POTASSIUM, SERUM 4.3 MMOL/L (3.5-5.3); SODIUM, SERUM 134 MMOL/L (135-148)
[2016-07-28 13:38] LABS: INTERNATIONAL NORMAL RATI 2.8 UNITS (-)
[2016-07-28 13:40] LABS: PROTIME (NOT ORD) 29.2 SEC (12.0-14.5)
[2016-07-29 05:23] LABS: HEMATOCRIT 29.2 % (40.0-51.0); HEMOGLOBIN 9.5 g/dL (13.6-17.8)
[2016-07-29 05:30] LABS: INTERNATIONAL NORMAL RATI 2.8 UNITS (-); PROTIME (NOT ORD) 29.1 SEC (12.0-14.5)
[2016-07-29 05:42] LABS: BUN (BLOOD UREA NITROGEN) 40 MG/DL (6-23); CALCIUM, SERUM 9.5 MG/DL (8.5-10.4); CHLORIDE, SERUM 96 MMOL/L (96-112); CO2 (CARBON DIOXIDE) 31 MMOL/L (24-34); CREATININE 2.22 MG/DL (0.70-1.30); GFR AFRICAN AMERICAN 32 ML/MIN (>=60); GFR NON AFRICAN AMERICAN 28 ML/MIN (>=60); GLUCOSE, SERUM 159 MG/DL (60-99); POTASSIUM, SERUM 4.2 MMOL/L (3.5-5.3); SODIUM, SERUM 135 MMOL/L (135-148)
[2016-07-29 16:07] LABS: PROCALCITONIN 0.22 ng/mL (<0.5)
[2016-07-30 05:32] LABS: BASOPHILS 0.8 %; BASOPHILS ABSOLUTE 0.05 10/3/uL (0.0-0.16); EOSINOPHILS 0.8 %; EOSINOPHILS ABSOLUTE 0.05 10/3/uL (0.0-0.53); HEMATOCRIT 28.7 % (40.0-51.0); HEMOGLOBIN 9.2 g/dL (13.6-17.8); IMMATURE GRANULOCYTES 4.6 %; LYMPHOCYTES 12.2 %; MEAN CORPUS HGB CONC 32.1 g/dL (32.0-36.0); MEAN CORPUSCULAR HEMOGLOB 29.4 pg (26.0-34.0); MEAN CORPUSCULAR VOLUME 91.7 fL (80-100); MEAN PLATELET VOLUME 9.7 fL (9.2-13.0); MONOCYTES 9.1 %; NEUTROPHILS 72.5 %; NEUTROPHILS ABSOLUTE 4.76 10/3/uL (2.02-8.40); PLATELET COUNT 310 10/3/uL (150-400); RBC DISTRIBUTION WIDTH 19.1 % (12.0-16.0); RED CELL COUNT 3.13 10/6/uL (4.7-6.1); WHITE BLOOD CELLS 6.6 10/3/uL (4.5-10.5)
[2016-07-30 05:38] LABS: INTERNATIONAL NORMAL RATI 2.4 UNITS (-); PROTIME (NOT ORD) 26.3 SEC (12.0-14.5)
[2016-07-30 05:41] LABS: MANUAL DIFF NO %
[2016-07-30 05:46] LABS: ALBUMIN 2.7 G/DL (3.5-5.0); BUN (BLOOD UREA NITROGEN) 41 MG/DL (6-23); CALCIUM, SERUM 8.7 MG/DL (8.5-10.4); CHLORIDE, SERUM 95 MMOL/L (96-112); CO2 (CARBON DIOXIDE) 31 MMOL/L (24-34); CREATININE 2.11 MG/DL (0.70-1.30); GFR AFRICAN AMERICAN 34 ML/MIN (>=60); GFR NON AFRICAN AMERICAN 30 ML/MIN (>=60); PHOSPHORUS, SERUM 2.8 MG/DL (2.5-4.5); POTASSIUM, SERUM 4.3 MMOL/L (3.5-5.3); SODIUM, SERUM 134 MMOL/L (135-148)
[2016-07-30 05:47] LABS: GLUCOSE, SERUM 193 MG/DL (60-99)
[2016-07-30 17:22] LABS: INTERNATIONAL NORMAL RATI 2.2 UNITS (-); PARTIAL THROMBO TIME 43.9 SEC (22.5-37.2); PROTIME (NOT ORD) 24.4 SEC (12.0-14.5)
[2016-07-31 05:00] LABS: BASOPHILS 0.7 %; BASOPHILS ABSOLUTE 0.04 10/3/uL (0.0-0.16); EOSINOPHILS 0.3 %; EOSINOPHILS ABSOLUTE 0.02 10/3/uL (0.0-0.53); HEMATOCRIT 26.8 % (40.0-51.0); HEMOGLOBIN 8.8 g/dL (13.6-17.8); IMMATURE GRANULOCYTES 3.1 %; IMMATURE GRANULOCYTES ABSOLUTE 0.18 10/3/uL (0.0-0.11); LYMPHOCYTES 14.7 %; LYMPHOCYTES ABSOLUTE 0.85 10/3/uL (0.67-4.30); MEAN CORPUS HGB CONC 32.8 g/dL (32.0-36.0); MEAN CORPUSCULAR HEMOGLOB 30.1 pg (26.0-34.0); MEAN CORPUSCULAR VOLUME 91.8 fL (80-100); MEAN PLATELET VOLUME 9.7 fL (9.2-13.0); MONOCYTES 6.7 %; MONOCYTES ABSOLUTE 0.39 10/3/uL (0.21-1.20); NEUTROPHILS 74.5 %; NEUTROPHILS ABSOLUTE 4.31 10/3/uL (2.02-8.40); PLATELET COUNT 280 10/3/uL (150-400); RBC DISTRIBUTION WIDTH 19.3 % (12.0-16.0); RED CELL COUNT 2.92 10/6/uL (4.7-6.1); WHITE BLOOD CELLS 5.8 10/3/uL (4.5-10.5)
[2016-07-31 05:05] LABS: MANUAL DIFF NO %
[2016-07-31 05:06] LABS: INTERNATIONAL NORMAL RATI 1.9 UNITS (-); PROTIME (NOT ORD) 21.5 SEC (12.0-14.5)
[2016-07-31 05:07] LABS: PARTIAL THROMBO TIME 38.7 SEC (22.5-37.2)
[2016-07-31 05:14] LABS: ALBUMIN 2.5 G/DL (3.5-5.0); BUN (BLOOD UREA NITROGEN) 40 MG/DL (6-23); CALCIUM, SERUM 8.6 MG/DL (8.5-10.4); CHLORIDE, SERUM 96 MMOL/L (96-112); CO2 (CARBON DIOXIDE) 28 MMOL/L (24-34); CREATININE 1.82 MG/DL (0.70-1.30); GFR AFRICAN AMERICAN 41 ML/MIN (>=60); GFR NON AFRICAN AMERICAN 35 ML/MIN (>=60); GLUCOSE, SERUM 171 MG/DL (60-99); PHOSPHORUS, SERUM 3.1 MG/DL (2.5-4.5); POTASSIUM, SERUM 4.1 MMOL/L (3.5-5.3); SODIUM, SERUM 135 MMOL/L (135-148)
[2016-07-31 16:35] LABS: INTERNATIONAL NORMAL RATI 1.8 UNITS (-); PROTIME (NOT ORD) 20.7 SEC (12.0-14.5)
[2016-07-31 18:24] LABS: PARTIAL THROMBO TIME 39.5 SEC (22.5-37.2)
[2016-08-01 01:11] LABS: BASOPHILS 0.2 %; BASOPHILS ABSOLUTE 0.01 10/3/uL (0.0-0.16); EOSINOPHILS 0.2 %; EOSINOPHILS ABSOLUTE 0.01 10/3/uL (0.0-0.53); HEMATOCRIT 28.7 % (40.0-51.0); HEMOGLOBIN 9.3 g/dL (13.6-17.8); IMMATURE GRANULOCYTES 1.7 %; IMMATURE GRANULOCYTES ABSOLUTE 0.09 10/3/uL (0.0-0.11); LYMPHOCYTES 13.6 %; LYMPHOCYTES ABSOLUTE 0.72 10/3/uL (0.67-4.30); MANUAL DIFF NO %; MEAN CORPUS HGB CONC 32.4 g/dL (32.0-36.0); MEAN CORPUSCULAR HEMOGLOB 29.6 pg (26.0-34.0); MEAN CORPUSCULAR VOLUME 91.4 fL (80-100); MEAN PLATELET VOLUME 9.4 fL (9.2-13.0); MONOCYTES 7.2 %; MONOCYTES ABSOLUTE 0.38 10/3/uL (0.21-1.20); NEUTROPHILS 77.1 %; PLATELET COUNT 244 10/3/uL (150-400); RBC DISTRIBUTION WIDTH 19.3 % (12.0-16.0); RED CELL COUNT 3.14 10/6/uL (4.7-6.1); WHITE BLOOD CELLS 5.3 10/3/uL (4.5-10.5)
[2016-08-01 01:18] LABS: INTERNATIONAL NORMAL RATI 1.8 UNITS (-); PARTIAL THROMBO TIME 43.3 SEC (22.5-37.2); PROTIME (NOT ORD) 20.4 SEC (12.0-14.5)
[2016-08-01 01:28] LABS: ALBUMIN 2.7 G/DL (3.5-5.0); BUN (BLOOD UREA NITROGEN) 42 MG/DL (6-23); CALCIUM, SERUM 8.5 MG/DL (8.5-10.4); CHLORIDE, SERUM 98 MMOL/L (96-112); CO2 (CARBON DIOXIDE) 30 MMOL/L (24-34); CREATININE 1.72 MG/DL (0.70-1.30); GFR AFRICAN AMERICAN 44 ML/MIN (>=60); GFR NON AFRICAN AMERICAN 38 ML/MIN (>=60); GLUCOSE, SERUM 140 MG/DL (60-99); PHOSPHORUS, SERUM 3.4 MG/DL (2.5-4.5); POTASSIUM, SERUM 3.9 MMOL/L (3.5-5.3); SODIUM, SERUM 136 MMOL/L (135-148)
[2016-08-02 04:13] LABS: BASOPHILS 0.4 %; BASOPHILS ABSOLUTE 0.02 10/3/uL (0.0-0.16); EOSINOPHILS 0.6 %; EOSINOPHILS ABSOLUTE 0.03 10/3/uL (0.0-0.53); HEMOGLOBIN 9.1 g/dL (13.6-17.8); IMMATURE GRANULOCYTES 1.9 %; IMMATURE GRANULOCYTES ABSOLUTE 0.09 10/3/uL (0.0-0.11); LYMPHOCYTES 18.3 %; LYMPHOCYTES ABSOLUTE 0.88 10/3/uL (0.67-4.30); MEAN CORPUS HGB CONC 32.5 g/dL (32.0-36.0); MEAN CORPUSCULAR HEMOGLOB 29.8 pg (26.0-34.0); MEAN CORPUSCULAR VOLUME 91.8 fL (80-100); MEAN PLATELET VOLUME 9.3 fL (9.2-13.0); MONOCYTES 5.8 %; MONOCYTES ABSOLUTE 0.28 10/3/uL (0.21-1.20); PLATELET COUNT 245 10/3/uL (150-400); RBC DISTRIBUTION WIDTH 19.3 % (12.0-16.0); RED CELL COUNT 3.05 10/6/uL (4.7-6.1); WHITE BLOOD CELLS 4.8 10/3/uL (4.5-10.5)
[2016-08-02 04:19] LABS: INTERNATIONAL NORMAL RATI 2.1 UNITS (-); MANUAL DIFF NO %; PROTIME (NOT ORD) 23.7 SEC (12.0-14.5)
[2016-08-02 04:21] LABS: BUN (BLOOD UREA NITROGEN) 45 MG/DL (6-23); CALCIUM, SERUM 8.3 MG/DL (8.5-10.4); CHLORIDE, SERUM 98 MMOL/L (96-112); CO2 (CARBON DIOXIDE) 27 MMOL/L (24-34); GFR AFRICAN AMERICAN 41 ML/MIN (>=60); GFR NON AFRICAN AMERICAN 36 ML/MIN (>=60); GLUCOSE, SERUM 128 MG/DL (60-99); POTASSIUM, SERUM 3.7 MMOL/L (3.5-5.3); SODIUM, SERUM 137 MMOL/L (135-148)
[2016-08-02 04:30] LABS: PARTIAL THROMBO TIME > 150.0 SEC (22.5-37.2)
[2016-08-03 06:17] LABS: BASOPHILS ABSOLUTE 0.05 10/3/uL (0.0-0.16); EOSINOPHILS ABSOLUTE 0.05 10/3/uL (0.0-0.53); HEMATOCRIT 27.5 % (40.0-51.0); IMMATURE GRANULOCYTES 1.2 %; IMMATURE GRANULOCYTES ABSOLUTE 0.06 10/3/uL (0.0-0.11); LYMPHOCYTES 24.6 %; LYMPHOCYTES ABSOLUTE 1.26 10/3/uL (0.67-4.30); MEAN CORPUS HGB CONC 32.7 g/dL (32.0-36.0); MEAN CORPUSCULAR HEMOGLOB 29.4 pg (26.0-34.0); MEAN CORPUSCULAR VOLUME 89.9 fL (80-100); MEAN PLATELET VOLUME 9.4 fL (9.2-13.0); MONOCYTES 5.7 %; MONOCYTES ABSOLUTE 0.29 10/3/uL (0.21-1.20); NEUTROPHILS 66.5 %; NEUTROPHILS ABSOLUTE 3.42 10/3/uL (2.02-8.40); PLATELET COUNT 224 10/3/uL (150-400); RBC DISTRIBUTION WIDTH 19.7 % (12.0-16.0); RED CELL COUNT 3.06 10/6/uL (4.7-6.1); WHITE BLOOD CELLS 5.1 10/3/uL (4.5-10.5)
[2016-08-03 06:19] LABS: MANUAL DIFF NO %
[2016-08-03 06:27] LABS: INTERNATIONAL NORMAL RATI 2.4 UNITS (-)
[2016-08-03 06:29] LABS: BUN (BLOOD UREA NITROGEN) 45 MG/DL (6-23); CALCIUM, SERUM 8.3 MG/DL (8.5-10.4); CHLORIDE, SERUM 99 MMOL/L (96-112); CO2 (CARBON DIOXIDE) 28 MMOL/L (24-34); CREATININE 1.79 MG/DL (0.70-1.30); GFR AFRICAN AMERICAN 42 ML/MIN (>=60); GFR NON AFRICAN AMERICAN 36 ML/MIN (>=60); GLUCOSE, SERUM 112 MG/DL (60-99); SODIUM, SERUM 138 MMOL/L (135-148)
[2016-08-03 06:30] LABS: PARTIAL THROMBO TIME 142.5 SEC (22.5-37.2)
[2016-08-04 08:18] LABS: INTERNATIONAL NORMAL RATI 2.9 UNITS (-); PARTIAL THROMBO TIME 73.6 SEC (22.5-37.2); PROTIME (NOT ORD) 29.7 SEC (12.0-14.5)
== END 2016-08-04 13:56 | DRG 518 ==
LOC: 3SO 19:41 → MIC 07-11 22:17 → 1SO 07-13 20:01 → 3SO 07-14 16:53
PROVIDERS: Hospitalist; Internal Medicine; Internal Medicine Critical Care Medicine; Internal Medicine Gastroenterology; Nurse Practitioner; Nurse Practitioner Gerontology; Orthopaedic Surgery; Physician Assistant Medical
PROC: 30233K1 Transfusion of Nonautologous Frozen Plasma into Peripheral Vein, Percutaneous Approach (ICD-10-PCS; 2016-07-08)
PROC: 01NB0ZZ Release Lumbar Nerve, Open Approach (ICD-10-PCS; 2016-07-11)
PROC: 30233R1 Transfusion of Nonautologous Platelets into Peripheral Vein, Percutaneous Approach (ICD-10-PCS; 2016-07-11)
PROC: 0ST20ZZ Resection of Lumbar Vertebral Disc, Open Approach (ICD-10-PCS; principal; 2016-07-11 16:45)
PROC: 30233N1 Transfusion of Nonautologous Red Blood Cells into Peripheral Vein, Percutaneous Approach (ICD-10-PCS; 2016-07-19)
DX: M51.16 Intervertebral disc disorders with radiculopathy, lumbar region (principal); J95.821 Acute postprocedural respiratory failure; N17.9 Acute kidney failure, unspecified; D68.8 Other specified coagulation defects; E11.22 Type 2 diabetes mellitus with diabetic chronic kidney disease; D62 Acute posthemorrhagic anemia; N18.3 Chronic kidney disease, stage 3 (moderate); R00.1 Bradycardia, unspecified; N39.0 Urinary tract infection, site not specified; G47.33 Obstructive sleep apnea (adult) (pediatric); I12.9 Hypertensive chronic kidney disease with stage 1 through stage 4 chronic kidney disease, or unspecified chronic kidney disease; D63.1 Anemia in chronic kidney disease; E66.9 Obesity, unspecified; Z68.38 Body mass index [BMI] 38.0-38.9, adult; I50.9 Heart failure, unspecified; Z95.2 Presence of prosthetic heart valve; Z79.01 Long term (current) use of anticoagulants; Y83.8 Other surgical procedures as the cause of abnormal reaction of the patient, or of later complication, without mention of misadventure at the time of the procedure; Y92.239 Unspecified place in hospital as the place of occurrence of the external cause; Z88.1 Allergy status to other antibiotic agents; T50.995A Adverse effect of other drugs, medicaments and biological substances, initial encounter
CPT/HCPCS: 31720; 36415; 36600; 71010; 80048; 80053; 80069; 80074; 80076; 81001; 82105; 82272; 82330; 82607; 82728; 82746; 82805; 82962; 83036; 83540; 83550; 83735; 84100; 84145; 84238; 84484; 85014; 85018; 85025; 85610; 85730; 86850; 86900; 86901; 86920; 87070; 87077; 87086; 87186; 87205; 87641; 88304; 88311; 94002; 94003; 94640; 94660; 97110-GO; 97110-GP; 97161-GP; 97164-GP; 97166-GO; 97168-GO; 97530-GP; 97535-GO; A9270-GY; C1751; C1769; C8929; G8978-CL-GP; G8979-CJ-GP; J0690; J0692; J0885; J1030; J1610; J1940; J2370; J2405; J2710; J3010; P9016; P9035; P9047; P9059; Q9957